=== PATIENT | male | born 1970 | race Two or more races ===

== ENCOUNTER 2019-03-01 17:01 | Inpatient (IN) | payer OTHER ==
[2019-03-01 17:40] VITALS: BMI 22.6
--- NOTE | 2019-03-01 19:43 | HP ---
CIWA Score Nausea/Vomitin-Mild Nausea/No Vomiting Muscle Tremors: 3 Anxiety: 2 Agitation: 2 Paroxysmal Sweats: 1-Minimal Palms Moist Orientation: 2-Disoriented Date<2 days Tacttile Disturbances: 1-Very Mild Itch/Numbness Auditory Disturbances: 1-Very Mild Visual Disturbances: 1-Very Mild Sensitivity Headache: 1-Very Mild CIWA-Ar Total Score: 15 - Admission Criteria OASAS Guidelines: Admission for Medically Managed Detox: Requires at least one of the followin. CIWA greater than 12 2. Seizures within the past 24 hours 3. Delirium tremens within the past 24 hours 4. Hallucinations within the past 24 hours 5. Acute intervention needed for co occurring medical disorder 6. Acute intervention needed for co occurring psychiatric disorder 7. Severe withdrawal that cannot be handled at a lower level of care (continued vomiting, continued diarrhea, abnormal vital signs) requiring intravenous medication and/or fluids 8. Admitting History and Physical - Admission Chief Complaint: Withdrawal symptoms History Source: Patient Limitations to Obtaining History: No Limitations - Past Surgical History Past Surgical History: Yes: None - Smoking History Smoking history: Current every day smoker Have you smoked in the past 12 months: Yes Aproximately how many cigarettes per day: 5 - Alcohol/Substance Use Hx Alcohol Use: Yes Number of Drinks Daily: 2 (2 pints ) Date of Last Use: 03/01/19 - Social History Usual Living Arrangement: Yes: Other (Homeless) Admission [facility] Chief Complaint: WITHDRAWAL SYMPTOMS Allergies/Adverse Reactions: Allergies Allergy/AdvReac Type Severity Reaction Status Date / Time No Known Allergies Allergy Verified 03/01/19 17:36 History of Present Illness: 48 Y.O. MAN WITH AN EXTENSIVE HISTORY OF ALCOHOL DEPENDENCE IS HERE SEEKING HIS FIRST ADMISSION TO DETOX. HE WAS AT [facility] OVERNIGHT FOR ALCOHOL INTOXICATION AND WAS BROUGHT TO [facility] BY OUR WATER SERVER FOR DETOX SERVICES. DOES NOT HAVE A SIGNIFICANT PERIOD OF SOBRIETY. Exam Limitations: No Limitations - Ebola screening Have you traveled outside of the country in the last 21 days: No (N) Have you had contact with anyone from an Ebola affected area: No Do you have a fever: No - Review of Systems Constitutional: Chills, Unintentional Wgt. Loss EENT: reports: Blurred Vision, Eye Pain, Tearing Respiratory: reports: Shortness of Breath Cardiac: reports: Palpitations GI: reports: Vomiting, Abdominal cramping : reports: No Symptoms Reported Musculoskeletal: reports: Back Pain, Neck Pain Integumentary: reports: No Symptoms Reported Neuro: reports: No Symptoms reported Endocrine: reports: No Symptoms Reported Hematology: reports: No Symptoms Reported Psychiatric: reports: Mood/Affect Appropiate Other Systems: Reviewed and Negative Patient History - Patient Medical History Hx Anemia: No Hx Asthma: No Hx Chronic Obstructive Pulmonary Disease (COPD): No Hx Cancer: No Hx Cardiac Disorders: No Hx Congestive Heart Failure: No Hx Hypertension: No Hx Hypercholesterolemia: No Hx Pacemaker: No HX Cerebrovascular Accident: No Hx Seizures: No Hx Dementia: No Hx Diabetes: Yes (Reports dx of prediabetes ) Hx Gastrointestinal Disorders: No Hx Liver Disease: No Hx Genitourinary Disorders: No Hx Sexually Transmitted Disorders: No Hx Renal Disease (ESRD): No Hx Thyroid Disease: No Hx Human Immunodeficiency Virus (HIV): No Hx Hepatitis C: No Hx Depression: No Hx Suicide Attempt: No Hx Bipolar Disorder: No Hx Schizophrenia: No - Patient Surgical History Past Surgical History: No - PPD History Results: H/O +ppd PPD to be Administered?: No - Reproductive History Patient is a Female of Child Bearing Age (11 -55 yrs old): No - Smoking Cessation Smoking history: Current every day smoker Have you smoked in the past 12 months: Yes Aproximately how many cigarettes per day: 5 Initiated information on smoking cessation: Yes 'Breaking Loose' booklet given: 03/01/19 - Substance & Tx. History Hx Alcohol Use: Yes Hx Substance Use: No Substance Use Type: Alcohol Hx Substance Use Treatment: No - Substances abused Alcohol Substance route: Oral Frequency: Daily Amount used: 1/2 GALLON VODKA Age of first use: 15 Date of last use: 03/01/19 Admission Physical Exam BHS - Vital Signs Vital Signs: Vital Signs - 24 hr 03/01/19 03/01/19 17:31 19:12 Temperature 98.1 F 98.1 F Pulse Rate 81 81 Respiratory 18 18 Rate Blood Pressure 149/99 149/99 - Physical General Appearance: Yes: Irritable, Sweating, Anxious HEENTM: Yes: Hearing grossly Normal, Normocephalic, Normal Voice Respiratory: Yes: Lungs Clear, Normal Breath Sounds, No Respiratory Distress, No Accessory Muscle Use Neck: Yes: No masses,lesions,Nodules Breast: Yes: Breast Exam Deferred Cardiology: Yes: Regular Rhythm, Regular Rate Abdominal: Yes: Normal Bowel Sounds, Non Tender, Flat Back: Yes: Within Normal Limits Extremities: Yes: Normal Capillary Refill Neurological: Yes: Alert, Normal Mood/Affect, Normal Response Integumentary: Yes: Normal Color, Dry, Warm Lymphatic: Yes: Within Normal Limits - Diagnostic (1) Alcohol dependence with intoxication, uncomplicated Current Visit: Yes Status: Chronic (2) Nicotine dependence Current Visit: Yes Status: Chronic (3) Prediabetes Current Visit: Yes Status: Chronic Cleared for Admission S - Detox or Rehab [facility] Level of Care: Medically Managed Detox Regimen/Protocol: Librium Claeared for Rehab Admission: No Breathalyzer - Breathalyzer Breathalyzer: 0.048 Urine Drug Screen - Test Device Lot number: [id number] Expiration date: 10/06/20 - Control Is test valid?: Yes - Results Drug screen NEGATIVE: No Urine drug screen results: MONICO-Cocaine, BZO-Benzodiazepines Inpatient Rehab Admission - Rehab Decision to Admit Inpatient rehab admission?: No
[2019-03-01] MEDS ORDERED: MAGNESIUM HYDROX 2400MG/30ML ORAL SUSPENSION 30 ML CUP PO PRN (20:24)
[2019-03-01] MEDS ORDERED: hydrOXYzine PAMOATE 25 MG CAPSULE (FP) PO PRN (20:24)
[2019-03-01] MEDS ORDERED: IBUPROFEN 400 MG TABLET (FP) PO PRN (20:24)
[2019-03-01] MEDS ORDERED: MENTHOL/PHENOL 1 EACH UD MM PRN (20:24)
[2019-03-01] MEDS ORDERED: ACETAMINOPHEN 325 MG TABLET (FP) PO PRN ×2 (20:24)
[2019-03-01] MEDS ORDERED: chlordiazePOXIDE HCL 25 MG CAPSULE PO ONE (20:24)
[2019-03-01] MEDS ORDERED: MAGNESIUM CITRATE 300 ML BOTTLE PO PRN (20:24)
[2019-03-01] MEDS ORDERED: chlordiazePOXIDE HCL 25 MG CAPSULE PO PRN (20:24)
[2019-03-01] MEDS ORDERED: BISMUTH SUBSALICYLATE 524 MG/30 ML UD PO PRN (20:24)
[2019-03-01] MEDS ORDERED: METHOCARBAMOL 500 MG TABLET PO PRN (20:24)
[2019-03-01] MEDS ORDERED: MAG HYDROX/AL HYDROX/SIMETH 30 ML UNIT-DOSE CUP PO PRN (20:24)
[2019-03-01] MEDS ORDERED: NICOTINE POLACRILEX 2 MG GUM BUC PRN (20:24)
[2019-03-02] MEDS: chlordiazePOXIDE HCL 25 MG CAPSULE PO SCH ×5 (00:10→22:36)
[2019-03-02] MEDS: THIAMINE HCL 100 MG TABLET (FP) PO SCH ×2 (00:10→22:36)
[2019-03-02] MEDS: NICOTINE 14 MG/24 HOURS TOPICAL PATCH TD SCH (10:42)
[2019-03-02] MEDS: PRENATAL VITAMINS W/ FOLIC ACID TABLET (FP) PO SCH (10:42)
[2019-03-02 11:02] LABS: ALBUMIN 3.1 g/dl (3.4-5.0); BILIRUBIN,TOTAL 0.4 mg/dL (0.2-1); BLOOD UREA NITROGEN 19.4 mg/dL (7-18); CALCIUM 8.7 mg/dL (8.5-10.1); CREATININE 1.3 mg/dL (0.55-1.3); POTASSIUM 4.7 mmol/L (3.5-5.1); TOT PROT 5.6 g/dl (6.4-8.2)
[2019-03-02 11:07] LABS: HEMATOCRIT 38.8 % (35.4-49); MCH 32.1 pg (25.7-33.7); MCHC 33.5 g/dl (32.0-35.9); MEAN CELL VOLUME 95.6 fl (80-96); MEAN PLT VOLUME 8.8 fl (7.5-11.1); PLATELET COUNT 149 K/MM3 (134-434); RBC 4.05 M/mm3 (4.00-5.60); RDW 15.9 % (11.9-15.9); WHITE BLOOD COUNT 5.1 K/mm3 (4.0-10.0)
--- NOTE | 2019-03-02 12:25 | PN ---
[facility] CIWA - CIWA Score Nausea/Vomitin-No Nausea/No Vomiting Muscle Tremors: 3 Anxiety: 3 Agitation: 3 Paroxysmal Sweats: 2 Orientation: 0-Oriented Tacttile Disturbances: 0-None Auditory Disturbances: 0-None Visual Disturbances: 0-None Headache: 0-None Present CIWA-Ar Total Score: 11 S Progress Note (SOAP) Subjective: sweats shakes body aches interrupted sleep Objective: 03/02/19 12:24 Vital Signs Temperature 97.5 F L 03/02/19 09:30 Pulse Rate 61 03/02/19 09:30 Respiratory Rate 18 03/02/19 09:30 Blood Pressure 152/100 03/02/19 09:30 O2 Sat by Pulse Oximetry (%) Laboratory Tests 03/02/19 03/02/19 07:50 07:50 WBC 5.1 RBC 4.05 Hgb 13.0 Hct 38.8 MCV 95.6 MCH 32.1 MCHC 33.5 RDW 15.9 Plt Count 149 MPV 8.8 Sodium 141 Potassium 4.7 Chloride 108 H Carbon Dioxide 30 Anion Gap 3 L BUN 19.4 H Creatinine 1.3 Est GFR (CKD-EPI)AfAm 75.84 Est GFR (CKD-EPI)NonAf 65.43 Random Glucose 95 Calcium 8.7 Total Bilirubin 0.4 AST 100 H ALT 134 H Alkaline Phosphatase 107 Total Protein 5.6 L Albumin 3.1 L elevated liver enzymes aaox3 ambulating no acute distress Assessment: 03/02/19 12:24 withdrawals Plan: continue detox increase fluids d/c tylenol repeat labs
[2019-03-02] MEDS: MELATONIN 5 MG TABLETS PO PRN (22:37)
--- NOTE | 2019-03-03 05:12 | EKG ---
Test Reason : Blood Pressure : / mmHG Vent. Rate : 066 BPM Atrial Rate : 066 BPM P-R Int : 168 ms QRS Dur : 092 ms QT Int : 382 ms P-R-T Axes : 000 001 087 degrees QTc Int : 400 ms NORMAL SINUS RHYTHM LATERAL INFARCT , AGE UNDETERMINED ABNORMAL ECG NO PREVIOUS ECGS AVAILABLE Confirmed by REY HIGHTOWER MD ([id number]) on 03/03/2019 5:12:31 AM Referred By: QUINCY Confirmed By:REY HIGHTOWER MD
[2019-03-03] MEDS: chlordiazePOXIDE HCL 25 MG CAPSULE PO SCH ×4 (06:07→22:39)
--- NOTE | 2019-03-03 09:37 | PN ---
S CIWA - CIWA Score Nausea/Vomitin-No Nausea/No Vomiting Muscle Tremors: 2 Anxiety: 2 Agitation: 2 Paroxysmal Sweats: 2 Orientation: 0-Oriented Tacttile Disturbances: 0-None Auditory Disturbances: 0-None Visual Disturbances: 0-None Headache: 0-None Present CIWA-Ar Total Score: 8 BHS Progress Note (SOAP) Subjective: dry skin sweats shakes interrupted sleep Objective: 03/03/19 09:36 Vital Signs Temperature 97.9 F 03/03/19 09:30 Pulse Rate 77 03/03/19 09:30 Respiratory Rate 18 03/03/19 09:30 Blood Pressure 127/93 03/03/19 09:30 O2 Sat by Pulse Oximetry (%) Laboratory Tests 03/02/19 03/02/19 03/02/19 07:50 07:50 07:50 WBC 5.1 RBC 4.05 Hgb 13.0 Hct 38.8 MCV 95.6 MCH 32.1 MCHC 33.5 RDW 15.9 Plt Count 149 MPV 8.8 Sodium 141 Potassium 4.7 Chloride 108 H Carbon Dioxide 30 Anion Gap 3 L BUN 19.4 H Creatinine 1.3 Est GFR (CKD-EPI)AfAm 75.84 Est GFR (CKD-EPI)NonAf 65.43 Random Glucose 95 Calcium 8.7 Total Bilirubin 0.4 AST 100 H ALT 134 H Alkaline Phosphatase 107 Total Protein 5.6 L Albumin 3.1 L RPR Titer Nonreactive repeat labs pending aaox3 ambulating no acute distress Assessment: 03/03/19 09:36 withdrawals sx Plan: continue detox increase fluids lac hyrin lotion ordered pending repeated labs
[2019-03-03] MEDS: AMMONIUM LACTATE 12% LOTION 225 GM BOTTLE TP SCH ×2 (10:30→22:40)
[2019-03-03] MEDS: PRENATAL VITAMINS W/ FOLIC ACID TABLET (FP) PO SCH (10:32)
[2019-03-03] MEDS: NICOTINE 14 MG/24 HOURS TOPICAL PATCH TD SCH (10:32)
[2019-03-03] MEDS: THIAMINE HCL 100 MG TABLET (FP) PO SCH (22:39)
[2019-03-04] MEDS ORDERED: chlordiazePOXIDE HCL 10 MG CAPSULE PO PRN
[2019-03-04] MEDS: chlordiazePOXIDE HCL 10 MG CAPSULE PO SCH ×4 (06:33→22:11)
[2019-03-04 10:35] LABS: ALBUMIN 2.9 g/dl (3.4-5.0); BILIRUBIN,TOTAL 0.2 mg/dL (0.2-1); BLOOD UREA NITROGEN 21.1 mg/dL (7-18); CALCIUM 8.5 mg/dL (8.5-10.1); CREATININE 1.3 mg/dL (0.55-1.3); POTASSIUM 3.6 mmol/L (3.5-5.1); TOT PROT 5.3 g/dl (6.4-8.2)
[2019-03-04] MEDS: AMMONIUM LACTATE 12% LOTION 225 GM BOTTLE TP SCH ×2 (10:43→22:12)
[2019-03-04] MEDS: NICOTINE 14 MG/24 HOURS TOPICAL PATCH TD SCH (10:43)
[2019-03-04] MEDS: PRENATAL VITAMINS W/ FOLIC ACID TABLET (FP) PO SCH (10:43)
--- NOTE | 2019-03-04 14:21 | PN ---
S CIWA - CIWA Score Nausea/Vomitin-No Nausea/No Vomiting Muscle Tremors: 2 Anxiety: 1-Mildly Anxious Agitation: 2 Paroxysmal Sweats: 1-Minimal Palms Moist Orientation: 0-Oriented Tacttile Disturbances: 0-None Auditory Disturbances: 0-None Visual Disturbances: 0-None Headache: 0-None Present CIWA-Ar Total Score: 6 BHS Progress Note (SOAP) Subjective: sweats shakes irritable Objective: 03/04/19 14:19 Vital Signs Temperature 98.2 F 03/04/19 14:04 Pulse Rate 85 03/04/19 14:04 Respiratory Rate 18 03/04/19 14:04 Blood Pressure 139/79 03/04/19 14:04 O2 Sat by Pulse Oximetry (%) aaox3 ambulating no acute distress Assessment: 03/04/19 14:20 withdrawals Plan: continue detox
[2019-03-04] MEDS: THIAMINE HCL 100 MG TABLET (FP) PO SCH (22:11)
[2019-03-05] MEDS: chlordiazePOXIDE HCL 10 MG CAPSULE PO SCH ×2 (06:54→17:55)
[2019-03-05] MEDS: PRENATAL VITAMINS W/ FOLIC ACID TABLET (FP) PO SCH (10:19)
[2019-03-05] MEDS: AMMONIUM LACTATE 12% LOTION 225 GM BOTTLE TP SCH ×2 (10:19→23:12)
[2019-03-05] MEDS: NICOTINE 14 MG/24 HOURS TOPICAL PATCH TD SCH (10:19)
[2019-03-05] MEDS: METHYL SALICYLATE/MENTHOL OINT 30 GM TUBE TP SCH ×2 (13:51→23:11)
--- NOTE | 2019-03-05 17:55 | PN ---
[facility] CIWA - CIWA Score Nausea/Vomitin-No Nausea/No Vomiting Muscle Tremors: None Anxiety: 3 Agitation: 2 Paroxysmal Sweats: No Perspiration Orientation: 0-Oriented Tacttile Disturbances: 0-None Auditory Disturbances: 0-None Visual Disturbances: 0-None Headache: 0-None Present CIWA-Ar Total Score: 5 S Progress Note (SOAP) Subjective: Body Aches. Objective: PATIENT A & O X 3, OBSERVED AMBULATING ON DETOX UNIT UNASSISTED. IN NO ACUTE DISTRESS. 03/05/19 17:51 Vital Signs Temperature 97.0 F L 03/05/19 13:36 Pulse Rate 81 03/05/19 13:36 Respiratory Rate 18 03/05/19 13:36 Blood Pressure 121/78 03/05/19 13:36 O2 Sat by Pulse Oximetry (%) Laboratory Tests 03/02/19 03/02/19 03/02/19 07:50 07:50 07:50 WBC 5.1 RBC 4.05 Hgb 13.0 Hct 38.8 MCV 95.6 MCH 32.1 MCHC 33.5 RDW 15.9 Plt Count 149 MPV 8.8 Sodium 141 Potassium 4.7 Chloride 108 H Carbon Dioxide 30 Anion Gap 3 L BUN 19.4 H Creatinine 1.3 Est GFR (CKD-EPI)AfAm 75.84 Est GFR (CKD-EPI)NonAf 65.43 Random Glucose 95 Calcium 8.7 Total Bilirubin 0.4 AST 100 H ALT 134 H Alkaline Phosphatase 107 Total Protein 5.6 L Albumin 3.1 L RPR Titer Nonreactive 03/04/19 08:00 WBC RBC Hgb Hct MCV MCH MCHC RDW Plt Count MPV Sodium 141 Potassium 3.6 Chloride 109 H Carbon Dioxide 24 Anion Gap 7 L BUN 21.1 H Creatinine 1.3 Est GFR (CKD-EPI)AfAm 75.84 Est GFR (CKD-EPI)NonAf 65.43 Random Glucose 134 H Calcium 8.5 Total Bilirubin 0.2 AST 41 H ALT 85 H Alkaline Phosphatase 109 Total Protein 5.3 L Albumin 2.9 L RPR Titer LABS NOTED. Assessment: 03/05/19 17:51 WITHDRAWAL SYMPTOMS. ELEVATED AST LEVEL. ELEVATED ALT LEVEL. AZOTEMIA. 03/05/19 17:52 Plan: CONTINUE DETOX. INCREASE DAILY ORAL WATER INTAKE. TOPICAL [facility] FOR LOWER BACK ACHE. PATIENT SCHEDULED FOR D/C FROM DETOX UNIT TOMORROW.
[2019-03-05] MEDS: THIAMINE HCL 100 MG TABLET (FP) PO SCH (22:05)
[2019-03-05] MEDS: MELATONIN 5 MG TABLETS PO PRN (22:06)
[2019-03-06] MEDS ORDERED: chlordiazePOXIDE HCL 10 MG CAPSULE PO ONE (05:00)
[2019-03-06 09:36] VITALS: BP 139/90; PULSE 83; TEMP 98.2
[2019-03-06] MEDS: NICOTINE 14 MG/24 HOURS TOPICAL PATCH TD SCH (10:33)
[2019-03-06] MEDS: METHYL SALICYLATE/MENTHOL OINT 30 GM TUBE TP SCH (10:33)
[2019-03-06] MEDS: AMMONIUM LACTATE 12% LOTION 225 GM BOTTLE TP SCH (10:33)
--- NOTE | 2019-03-06 14:10 | DS ---
[facility] Detox Discharge Summary Admission Date: 03/01/19 Discharge Date: 03/06/19 - History Present History: Alcohol Dependence Additional Comments: Patient completed detox successfully and accepted admission to [facility] inpatient rehab. Patient discharged safely in stable condition. Pertinent Past History: Alcohol dependence Nicotine dependence Prediabetes History of positive PPD - Physical Exam Results Vital Signs: Vital Signs Temperature 98.2 F 03/06/19 09:35 Pulse Rate 83 03/06/19 09:35 Respiratory Rate 16 03/06/19 09:35 Blood Pressure 139/90 03/06/19 09:35 O2 Sat by Pulse Oximetry (%) Elevated b/p 139/90: denies htn, could be r/t withdrawal; monitor b/p, clonidine prn Pertinent Admission Physical Exam Findings: Withdrawal sxs Laboratory Tests 03/02/19 03/02/19 03/02/19 07:50 07:50 07:50 WBC 5.1 RBC 4.05 Hgb 13.0 Hct 38.8 MCV 95.6 MCH 32.1 MCHC 33.5 RDW 15.9 Plt Count 149 MPV 8.8 Sodium 141 Potassium 4.7 Chloride 108 H Carbon Dioxide 30 Anion Gap 3 L BUN 19.4 H Creatinine 1.3 Est GFR (CKD-EPI)AfAm 75.84 Est GFR (CKD-EPI)NonAf 65.43 Random Glucose 95 Calcium 8.7 Total Bilirubin 0.4 AST 100 H ALT 134 H Alkaline Phosphatase 107 Total Protein 5.6 L Albumin 3.1 L RPR Titer Nonreactive 03/04/19 08:00 WBC RBC Hgb Hct MCV MCH MCHC RDW Plt Count MPV Sodium 141 Potassium 3.6 Chloride 109 H Carbon Dioxide 24 Anion Gap 7 L BUN 21.1 H Creatinine 1.3 Est GFR (CKD-EPI)AfAm 75.84 Est GFR (CKD-EPI)NonAf 65.43 Random Glucose 134 H Calcium 8.5 Total Bilirubin 0.2 AST 41 H ALT 85 H Alkaline Phosphatase 109 Total Protein 5.3 L Albumin 2.9 L RPR Titer Labs reviewed: prerenal azotemia noted: encouraged PO water intake, monitor bmp intermittently - Treatment Hospital Course: Detox Protocol Followed, Detoxed Safely, Responded well, Discharged Condition Good, Rehab Referral Accepted - Medication Discharge Medications: Ambulatory Orders NK [No Known Home Medication] 03/01/19 - Diagnosis (1) History of positive PPD Status: Chronic (2) Acute prerenal azotemia Status: Acute (3) Alcohol dependence with intoxication, uncomplicated Status: Acute (4) Nicotine dependence Status: Chronic (5) Prediabetes Status: Chronic (6) Elevated BP without diagnosis of hypertension Status: Acute - AMA Did Patient Leave Against Medical Advice: No (Accepted admission to [facility] rehab)
== END 2019-03-06 11:09 | disposition other institution (70) | DRG 775 ==
LOC: YASAS 17:01 → Y6N 19:58
PROVIDERS: ADMIT Allergy & Immunology; ATTEND Allergy & Immunology
PROC: HZ2ZZZZ Detoxification Services for Substance Abuse Treatment (ICD-10-PCS; principal; 2019-03-01)
DX: F10.230 Alcohol dependence with withdrawal, uncomplicated (principal); F17.210 Nicotine dependence, cigarettes, uncomplicated; R73.03 Prediabetes; R79.89 Other specified abnormal findings of blood chemistry; R76.11 Nonspecific reaction to tuberculin skin test without active tuberculosis; R03.0 Elevated blood-pressure reading, without diagnosis of hypertension; R74.0 Nonspecific elevation of levels of transaminase and lactic acid dehydrogenase [LDH]; R94.5 Abnormal results of liver function studies
CPT/HCPCS: 36415; 71046-TC-FY; 80053; 85027; 86593; 93005; 93010

== ENCOUNTER 2019-03-06 11:32 | Inpatient (IN) | payer OTHER ==
[2019-03-06] MEDS ORDERED: FLU VACCINE QUAD 60 MCG/0.5 ML (MDV 19-20) IM ONE (14:00)
[2019-03-06] MEDS ORDERED: guaiFENesin 200 MG/10 ML 10 ML UNIT-DOSE CUPS PO PRN (14:15)
[2019-03-06] MEDS ORDERED: MENTHOL/PHENOL 1 EACH UD MM PRN (14:15)
[2019-03-06] MEDS ORDERED: P-EPHED 60MG/TRIPROLIDI 2.5MG TABLET PO PRN (14:15)
[2019-03-06] MEDS ORDERED: hydrOXYzine PAMOATE 25 MG CAPSULE (FP) PO PRN (14:15)
[2019-03-06] MEDS ORDERED: MAGNESIUM CITRATE 300 ML BOTTLE PO PRN (14:15)
[2019-03-06] MEDS ORDERED: NICOTINE POLACRILEX 2 MG GUM BUC PRN (14:15)
[2019-03-06] MEDS ORDERED: MAG HYDROX/AL HYDROX/SIMETH 30 ML UNIT-DOSE CUP PO PRN (14:15)
[2019-03-06] MEDS ORDERED: LOPERAMIDE HCL 2 MG CAPSULE PO PRN (14:15)
[2019-03-06] MEDS ORDERED: IBUPROFEN 400 MG TABLET (FP) PO PRN (14:15)
[2019-03-06] MEDS ORDERED: MAGNESIUM HYDROX 2400MG/30ML ORAL SUSPENSION 30 ML CUP PO PRN (14:15)
[2019-03-06] MEDS ORDERED: ACETAMINOPHEN 325 MG TABLET (FP) PO PRN (14:15)
--- NOTE | 2019-03-06 14:15 | HP ---
[facility] Rehab Assess/Revision - Admission History Admitted to Rehab from: [facility] Date of Admission to Rehab: 03/06/2019 - Vital signs Vital Signs: Vital Signs Period Temp Pulse Resp BP Sys/Hodge Pulse Ox Last 24 Hr 98 F 86 18 115/74 - Findings Detox History & Physical reviewed: Yes Concur with findings: Yes Inpatient Rehab Admission - Rehab Decision to Admit Inpatient rehab admission?: Yes - Initial Determination Are CD services needed?: No Free of communicable disease: Yes Not in need of hospitalization: No - Rehab Admission Criteria Previous failed treatment: Yes Poor recovery environment: Yes Comorbidities: No Lacks judgement: Yes Patient is meeting Inpatient Rehab admission criteria:: Yes
[2019-03-06] MEDS: AMMONIUM LACTATE 12% LOTION 225 GM BOTTLE TP SCH (21:07)
[2019-03-06] MEDS ORDERED: MELATONIN 5 MG TABLETS PO PRN (22:00)
[2019-03-06] MEDS ORDERED: THIAMINE HCL 100 MG TABLET (FP) PO SCH (22:00)
[2019-03-07 07:32] VITALS: BP 128/81; PULSE 75; TEMP 97.6
[2019-03-07] MEDS ORDERED: PRENATAL VITAMINS W/ FOLIC ACID TABLET (FP) PO SCH (10:00)
[2019-03-07] MEDS ORDERED: METHYL SALICYLATE/MENTHOL OINT 30 GM TUBE TP SCH (10:00)
[2019-03-07] MEDS: AMMONIUM LACTATE 12% LOTION 225 GM BOTTLE TP SCH (10:11)
--- NOTE | 2019-03-07 11:04 | DS ---
[facility] Rehab Discharge Summary - [facility] Rehab Discharge Summary Admission Date: 03/06/19 Discharge Date: 03/07/19 - History Present History: Alcohol dependence Pertinent Past History: 48 Y.O. MAN WITH AN EXTENSIVE HISTORY OF ALCOHOL DEPENDENCE IS HERE SEEKING HIS FIRST ADMISSION. HE WAS AT [facility] OVERNIGHT FOR ALCOHOL INTOXICATION AND WAS BROUGHT TO [facility] BY OUR CUST[employer] REPRESENTATIVE FOR DETOX SERVICES. DOES NOT HAVE A SIGNIFICANT PERIOD OF SOBRIETY. - Discharge Physical Exam Vital Signs: Vital Signs Temperature 97.6 F 03/07/19 06:30 Pulse Rate 75 03/07/19 06:30 Respiratory Rate 18 03/07/19 06:30 Blood Pressure 128/81 03/07/19 06:30 O2 Sat by Pulse Oximetry (%) Pertinent Admission Physical Exam Findings: General Appearance: No apparent distress HEENTM: Normocephalic, Respiratory: Lungs Clear, Neck: supple, Nodules Cardiology: s1 s2 Abdominal: +Bowel Sounds, Non Tender, Flat MSK: Full ROM, steady gait Neurological: CN2-12 intact - Treatment Discharge Condition: Discharge condition good (Medically stable for discharge.) Hospital Course: Early discharge for patient after completing detox. - Medication Discharge Medications: Ambulatory Orders NK [No Known Home Medication] 03/01/19 - Medication-Assisted Treatment (MAT) Medication-Assisted Treatment (MAT): No - Discharge Instructions Diet, activity, other medical instructions: Diet: as tolerated Activity: as tolerated Other medical instructions: Please attend AA meetings and follow up with PCP. - Diagnosis (1) Alcohol dependence with intoxication, uncomplicated Current Visit: No Status: Acute - Follow-up Referral Minutes to complete discharge: 15 - AMA Did Patient Leave Against Medical Advice: No Additional Comments: Patient does not have any home medications. He refused an aftercare referral.
== END 2019-03-07 11:15 | disposition home or self-care (01) | DRG 772 ==
LOC: YASAS 11:32 → Y3W 11:33
PROVIDERS: ADMIT Neuromusculoskeletal Medicine & OMM; ATTEND Neuromusculoskeletal Medicine & OMM
PROC: HZ42ZZZ Group Counseling for Substance Abuse Treatment, Cognitive-Behavioral (ICD-10-PCS; principal; 2019-03-06)
DX: F10.20 Alcohol dependence, uncomplicated (principal); F17.210 Nicotine dependence, cigarettes, uncomplicated; R73.03 Prediabetes
CPT/HCPCS: 36415; 87389; G0008; Q2036

== ENCOUNTER 2022-07-18 10:53 | Inpatient (IN) | payer OTHER ==
[2022-07-18 11:29] VITALS: BMI 22.8
[2022-07-18] MEDS ORDERED: IBUPROFEN 400 MG TABLET (FP) PO PRN (14:50)
[2022-07-18] MEDS ORDERED: NICOTINE 10 MG CARTRIDGE (INHALER) IH PRN (14:50)
[2022-07-18] MEDS ORDERED: BENZOCAINE/MENTHOL (CHLORASEPTIC ) LOZENGE MM PRN (14:50)
[2022-07-18] MEDS ORDERED: NICOTINE POLACRILEX 2 MG GUM BUC PRN (14:50)
[2022-07-18] MEDS ORDERED: DICYCLOMINE HCL 10 MG CAPSULE PO PRN (14:50)
[2022-07-18] MEDS ORDERED: POLYETHYLENE GLYCOL (HEALTHYLAX) 3350 17 GM PACKET PO PRN (14:50)
[2022-07-18] MEDS ORDERED: IBUPROFEN 600 MG TABLET (FP) PO PRN (14:50)
[2022-07-18] MEDS ORDERED: NALOXONE HCL (KLOXXADO) 8 MG SPRAY NS PRN (14:50)
[2022-07-18] MEDS ORDERED: ACETAMINOPHEN 325 MG TABLET (FP) PO PRN (14:50)
[2022-07-18] MEDS ORDERED: COLLOIDAL OATMEAL 1 BAR EACH TP PRN (14:50)
[2022-07-18] MEDS ORDERED: MAGNESIUM HYDROX 2400MG/30ML ORAL SUSPENSION 30 ML CUP PO PRN (14:50)
[2022-07-18] MEDS ORDERED: MAG HYDROX/AL HYDROX/SIMETH 30 ML UNIT-DOSE CUP PO PRN (14:50)
[2022-07-18] MEDS ORDERED: LOPERAMIDE HCL 2 MG CAPSULE PO PRN (14:50)
[2022-07-18] MEDS ORDERED: guaiFENesin 600 MG TABLET.ER (FP) PO PRN (14:50)
[2022-07-18] MEDS ORDERED: BENZONATATE 200 MG CAPSULE PO PRN (14:50)
[2022-07-18] MEDS ORDERED: BISMUTH SUBSALICYLATE 262 MG/15 ML BTL PO PRN (14:50)
[2022-07-18] MEDS ORDERED: NALOXONE HCL 0.4 MG/ML VIAL IM PRN (14:50)
[2022-07-18] MEDS ORDERED: ONDANSETRON *ODT* 4 MG TABLET SL PRN (14:50)
[2022-07-18] MEDS ORDERED: AMMONIUM LACTATE 12% LOTION 225 GM BOTTLE TP PRN (14:50)
[2022-07-18] MEDS: levETIRAcetam 500 MG TABLET (FP) PO SCH (15:31)
[2022-07-18] MEDS: hydrOXYzine PAMOATE 25 MG CAPSULE (FP) PO PRN (21:54)
[2022-07-18] MEDS: METHOCARBAMOL 500 MG TABLET PO PRN (21:54)
[2022-07-18] MEDS: THIAMINE HCL 100 MG TABLET (FP) PO SCH (21:54)
[2022-07-18] MEDS: MELATONIN 5 MG TABLETS PO SCH (21:54)
[2022-07-19 09:31] LABS: HEMATOCRIT 35.8 % (35.4-49); HEMOGLOBIN 12.1 GM/dL (11.7-16.9); MCH 31.5 pg (25.7-33.7); MCHC 33.9 g/dl (32.0-35.9); MEAN CELL VOLUME 92.9 fl (80-96); MEAN PLT VOLUME 8.1 fl (7.5-11.1); PLATELET COUNT 165 10^3/uL (134-434); RBC 3.86 M/mm3 (4.00-5.60); RDW 15.5 % (11.9-15.9); WHITE BLOOD COUNT 6.8 K/mm3 (4.0-10.0)
[2022-07-19 09:35] LABS: POTASSIUM 4.4 mmol/L (3.5-5.1)
[2022-07-19 09:38] LABS: CALCIUM 8.6 mg/dL (8.5-10.1)
[2022-07-19 09:39] LABS: ALBUMIN 3.1 g/dl (3.4-5.0); BLOOD UREA NITROGEN 19.6 mg/dL (7-18)
[2022-07-19 09:40] LABS: CREATININE 1.3 mg/dL (0.55-1.3)
[2022-07-19 09:42] LABS: BILIRUBIN,TOTAL 0.9 mg/dL (0.2-1); TOT PROT 5.5 g/dl (6.4-8.2)
[2022-07-19] MEDS: PRENATAL VITAMINS W/ FOLIC ACID TABLET (FP) PO SCH (10:30)
[2022-07-19] MEDS: levETIRAcetam 500 MG TABLET (FP) PO SCH (10:30)
[2022-07-19] MEDS ORDERED: chlordiazePOXIDE HCL 10 MG CAPSULE PO PRN (11:00)
[2022-07-19] MEDS: chlordiazePOXIDE HCL 25 MG CAPSULE PO SCH ×3 (11:41→22:27)
[2022-07-19] MEDS: THIAMINE HCL 100 MG TABLET (FP) PO SCH (22:27)
[2022-07-19] MEDS: MELATONIN 5 MG TABLETS PO SCH (22:27)
[2022-07-20] MEDS: chlordiazePOXIDE HCL 10 MG CAPSULE PO SCH ×4 (05:32→22:37)
[2022-07-20] MEDS: levETIRAcetam 500 MG TABLET (FP) PO SCH (10:32)
[2022-07-20] MEDS: PRENATAL VITAMINS W/ FOLIC ACID TABLET (FP) PO SCH (10:32)
[2022-07-20] MEDS ORDERED: cloNIDine HCL 0.1 MG TABLET PO ONE (18:21)
[2022-07-20] MEDS: THIAMINE HCL 100 MG TABLET (FP) PO SCH (22:34)
[2022-07-20] MEDS: MELATONIN 5 MG TABLETS PO SCH (22:34)
[2022-07-20] MEDS: hydrOXYzine PAMOATE 25 MG CAPSULE (FP) PO PRN (22:37)
[2022-07-20] MEDS: METHOCARBAMOL 500 MG TABLET PO PRN (22:37)
[2022-07-21] MEDS: chlordiazePOXIDE HCL 10 MG CAPSULE PO SCH ×2 (05:55→16:44)
[2022-07-21] MEDS: PRENATAL VITAMINS W/ FOLIC ACID TABLET (FP) PO SCH (09:38)
[2022-07-21] MEDS: levETIRAcetam 500 MG TABLET (FP) PO SCH (09:38)
[2022-07-21] MEDS: THIAMINE HCL 100 MG TABLET (FP) PO SCH (22:00)
[2022-07-21] MEDS: MELATONIN 5 MG TABLETS PO SCH (22:00)
[2022-07-21] MEDS: METHOCARBAMOL 500 MG TABLET PO PRN (22:01)
[2022-07-21] MEDS ORDERED: LISINOPRIL 5 MG TABLET PO ONE (22:01)
[2022-07-21] MEDS: hydrOXYzine PAMOATE 25 MG CAPSULE (FP) PO PRN (22:01)
[2022-07-22] MEDS ORDERED: chlordiazePOXIDE HCL 10 MG CAPSULE PO ONE (05:00)
[2022-07-22 08:41] VITALS: BP 110/70; PULSE 62; RESP 16; TEMP 97.3
[2022-07-22] MEDS: PRENATAL VITAMINS W/ FOLIC ACID TABLET (FP) PO SCH (09:06)
[2022-07-22] MEDS: levETIRAcetam 500 MG TABLET (FP) PO SCH (09:07)
== END 2022-07-22 09:31 | disposition home or self-care (01) | DRG 775 ==
LOC: YASAS 10:53 → Y3N 14:49 → UNDOADMIN 14:49 → Y3N 07-19 18:23
PROVIDERS: ADMIT Allergy & Immunology; ATTEND Surgery
PROC: HZ2ZZZZ Detoxification Services for Substance Abuse Treatment (ICD-10-PCS; principal; 2022-07-18)
DX: F10.230 Alcohol dependence with withdrawal, uncomplicated (principal); F17.210 Nicotine dependence, cigarettes, uncomplicated; I12.9 Hypertensive chronic kidney disease with stage 1 through stage 4 chronic kidney disease, or unspecified chronic kidney disease; N18.9 Chronic kidney disease, unspecified; Z87.19 Personal history of other diseases of the digestive system; Z86.11 Personal history of tuberculosis; Z59.00 Homelessness unspecified
CPT/HCPCS: 36415; 80053; 85027; 86780; 87811; C9803-CS; U0003; U0005

== ENCOUNTER 2022-08-28 11:03 | Inpatient (IN) | payer OTHER ==
[2022-08-28 11:45] VITALS: BMI 21.9
[2022-08-28] MEDS ORDERED: ONDANSETRON *ODT* 4 MG TABLET SL PRN (12:33)
[2022-08-28] MEDS ORDERED: NALOXONE HCL (KLOXXADO) 8 MG SPRAY NS PRN (12:33)
[2022-08-28] MEDS ORDERED: BENZONATATE 200 MG CAPSULE PO PRN (12:33)
[2022-08-28] MEDS ORDERED: hydrOXYzine PAMOATE 25 MG CAPSULE (FP) PO PRN (12:33)
[2022-08-28] MEDS ORDERED: LORazepam 2 MG TABLET PO ONE (12:33)
[2022-08-28] MEDS ORDERED: guaiFENesin 600 MG TABLET.ER (FP) PO PRN (12:33)
[2022-08-28] MEDS ORDERED: LOPERAMIDE HCL 2 MG CAPSULE PO PRN (12:33)
[2022-08-28] MEDS ORDERED: IBUPROFEN 400 MG TABLET (FP) PO PRN (12:33)
[2022-08-28] MEDS ORDERED: POLYETHYLENE GLYCOL (HEALTHYLAX) 3350 17 GM PACKET PO PRN (12:33)
[2022-08-28] MEDS ORDERED: BENZOCAINE/MENTHOL (CHLORASEPTIC ) LOZENGE MM PRN (12:33)
[2022-08-28] MEDS ORDERED: NALOXONE HCL 0.4 MG/ML VIAL IM PRN (12:33)
[2022-08-28] MEDS ORDERED: MAG HYDROX/AL HYDROX/SIMETH 30 ML UNIT-DOSE CUP PO PRN (12:33)
[2022-08-28] MEDS ORDERED: BISMUTH SUBSALICYLATE 262 MG/15 ML BTL PO PRN (12:33)
[2022-08-28] MEDS ORDERED: IBUPROFEN 600 MG TABLET (FP) PO PRN (12:33)
[2022-08-28] MEDS ORDERED: DICYCLOMINE HCL 10 MG CAPSULE PO PRN (12:33)
[2022-08-28] MEDS ORDERED: ACETAMINOPHEN 325 MG TABLET (FP) PO PRN (12:33)
[2022-08-28] MEDS ORDERED: LORazepam 1 MG TABLET PO PRN (12:33)
[2022-08-28] MEDS ORDERED: MAGNESIUM HYDROX 2400MG/30ML ORAL SUSPENSION 30 ML CUP PO PRN (12:33)
[2022-08-28] MEDS ORDERED: METHOCARBAMOL 500 MG TABLET PO PRN (12:33)
[2022-08-28] MEDS ORDERED: NICOTINE 10 MG CARTRIDGE (INHALER) IH PRN (12:33)
[2022-08-28] MEDS ORDERED: LORazepam 2 MG TABLET ONE (13:19)
[2022-08-28] MEDS ORDERED: levETIRAcetam 500 MG TABLET (FP) PO ONE (13:20)
[2022-08-28] MEDS ORDERED: PRENATAL VITAMINS W/ FOLIC ACID TABLET (FP) PO ONE (13:20)
[2022-08-28] MEDS ORDERED: NICOTINE 14 MG/24 HOURS TOPICAL PATCH TD ONE (13:21)
[2022-08-28] MEDS: PRENATAL VITAMINS W/ FOLIC ACID TABLET (FP) PO SCH (13:22)
[2022-08-28] MEDS: levETIRAcetam 500 MG TABLET (FP) PO SCH (13:22)
[2022-08-28] MEDS: NICOTINE 14 MG/24 HOURS TOPICAL PATCH TD SCH (13:22)
[2022-08-28] MEDS: LORazepam 2 MG TABLET PO SCH ×2 (17:19→22:40)
[2022-08-28] MEDS: MELATONIN 5 MG TABLETS PO SCH (22:40)
[2022-08-28] MEDS: THIAMINE HCL 100 MG TABLET (FP) PO SCH (22:40)
[2022-08-29] MEDS: LORazepam 2 MG TABLET PO SCH ×4 (06:00→23:18)
[2022-08-29] MEDS: PRENATAL VITAMINS W/ FOLIC ACID TABLET (FP) PO SCH (10:45)
[2022-08-29] MEDS: levETIRAcetam 500 MG TABLET (FP) PO SCH (10:45)
[2022-08-29] MEDS: NICOTINE 14 MG/24 HOURS TOPICAL PATCH TD SCH (10:46)
[2022-08-29 10:56] LABS: POTASSIUM 3.6 mmol/L (3.5-5.1)
[2022-08-29 10:58] LABS: BLOOD UREA NITROGEN 16.7 mg/dL (7-18); CALCIUM 8.5 mg/dL (8.5-10.1)
[2022-08-29 10:59] LABS: ALBUMIN 3.2 g/dl (3.4-5.0)
[2022-08-29 11:00] LABS: HEMATOCRIT 38.5 % (35.4-49); HEMOGLOBIN 12.6 GM/dL (11.7-16.9); MCHC 32.6 g/dl (32.0-35.9); MEAN CELL VOLUME 94.9 fl (80-96); MEAN PLT VOLUME 9.4 fl (7.5-11.1); PLATELET COUNT 96 10^3/uL (134-434); RBC 4.05 M/mm3 (4.00-5.60); RDW 16.2 % (11.9-15.9); WHITE BLOOD COUNT 4.8 K/mm3 (4.0-10.0)
[2022-08-29 11:02] LABS: CREATININE 1.3 mg/dL (0.55-1.3)
[2022-08-29 11:03] LABS: TOT PROT 5.7 g/dl (6.4-8.2)
[2022-08-29] MEDS: THIAMINE HCL 100 MG TABLET (FP) PO SCH (22:17)
[2022-08-29] MEDS: MELATONIN 5 MG TABLETS PO SCH (22:18)
[2022-08-30] MEDS: LORazepam 1 MG TABLET PO SCH ×4 (05:18→22:19)
[2022-08-30] MEDS: PRENATAL VITAMINS W/ FOLIC ACID TABLET (FP) PO SCH (10:49)
[2022-08-30] MEDS: levETIRAcetam 500 MG TABLET (FP) PO SCH (10:49)
[2022-08-30] MEDS: NICOTINE 14 MG/24 HOURS TOPICAL PATCH TD SCH (10:49)
[2022-08-30 10:51] LABS: POTASSIUM 3.6 mmol/L (3.5-5.1)
[2022-08-30 11:02] LABS: ALBUMIN 3.2 g/dl (3.4-5.0); BLOOD UREA NITROGEN 19.6 mg/dL (7-18); CALCIUM 8.7 mg/dL (8.5-10.1)
[2022-08-30 11:04] LABS: CREATININE 1.5 mg/dL (0.55-1.3)
[2022-08-30 11:05] LABS: BILIRUBIN,TOTAL 0.6 mg/dL (0.2-1); TOT PROT 5.6 g/dl (6.4-8.2)
[2022-08-30] MEDS: LACTULOSE 20 GM/30 ML UDC (FOR ORAL USE ONLY) PO SCH ×2 (17:49→22:20)
[2022-08-30] MEDS: MELATONIN 5 MG TABLETS PO SCH (22:20)
[2022-08-30] MEDS: THIAMINE HCL 100 MG TABLET (FP) PO SCH (22:20)
[2022-08-31] MEDS ORDERED: LORazepam 0.5 MG TABLET PO PRN
[2022-08-31] MEDS: LORazepam 0.5 MG TABLET PO SCH ×4 (05:49→22:54)
[2022-08-31 09:31] LABS: ALBUMIN 3.7 g/dl (3.4-5.0)
[2022-08-31 09:33] LABS: BILIRUBIN,DIRECT 0.1 mg/dL (0.0-0.2)
[2022-08-31 09:35] LABS: BILIRUBIN,TOTAL 0.5 mg/dL (0.2-1)
[2022-08-31] MEDS: LACTULOSE 20 GM/30 ML UDC (FOR ORAL USE ONLY) PO SCH ×4 (10:55→22:54)
[2022-08-31] MEDS: levETIRAcetam 500 MG TABLET (FP) PO SCH (11:00)
[2022-08-31] MEDS: NICOTINE 14 MG/24 HOURS TOPICAL PATCH TD SCH (11:00)
[2022-08-31] MEDS: PRENATAL VITAMINS W/ FOLIC ACID TABLET (FP) PO SCH (11:00)
[2022-08-31] MEDS: THIAMINE HCL 100 MG TABLET (FP) PO SCH (22:54)
[2022-08-31] MEDS: MELATONIN 5 MG TABLETS PO SCH (22:55)
[2022-09-01] MEDS ORDERED: LORazepam 0.5 MG TABLET PO ONE (05:00)
[2022-09-01] MEDS: PRENATAL VITAMINS W/ FOLIC ACID TABLET (FP) PO SCH (10:39)
[2022-09-01] MEDS: levETIRAcetam 500 MG TABLET (FP) PO SCH (10:39)
[2022-09-01] MEDS: NICOTINE 14 MG/24 HOURS TOPICAL PATCH TD SCH (10:40)
[2022-09-01] MEDS: LACTULOSE 20 GM/30 ML UDC (FOR ORAL USE ONLY) PO SCH ×2 (10:40→15:08)
[2022-09-01 13:33] VITALS: BP 106/80; PULSE 91; RESP 18; TEMP 98
== END 2022-09-01 15:09 | disposition other institution (70) | DRG 774 ==
LOC: YASAS 11:03 → Y6N 13:45
PROVIDERS: ADMIT Allergy & Immunology; ATTEND Psychiatry & Neurology Pain Medicine
PROC: HZ2ZZZZ Detoxification Services for Substance Abuse Treatment (ICD-10-PCS; principal; 2022-08-28)
DX: F10.230 Alcohol dependence with withdrawal, uncomplicated (principal); F14.10 Cocaine abuse, uncomplicated; F17.210 Nicotine dependence, cigarettes, uncomplicated; F19.282 Other psychoactive substance dependence with psychoactive substance-induced sleep disorder; E72.20 Disorder of urea cycle metabolism, unspecified; G40.909 Epilepsy, unspecified, not intractable, without status epilepticus; R74.01 Elevation of levels of liver transaminase levels; R73.03 Prediabetes
CPT/HCPCS: 36415; 71046-TC-FY; 80053; 80076; 82140; 85027; 86780; 87635; 87811; Q0162

== ENCOUNTER 2022-09-01 14:41 | Inpatient (IN) | payer OTHER ==
[~2022-09-01 14:41] MED LIST: AMMONIUM LACTATE 12% LOTION 225 GM BOTTLE TP PRN; BENZOCAINE/MENTHOL (CHLORASEPTIC ) LOZENGE MM PRN; BENZONATATE 200 MG CAPSULE PO PRN; COLLOIDAL OATMEAL 1 BAR EACH TP PRN; LOPERAMIDE HCL 2 MG CAPSULE PO PRN; MAG HYDROX/AL HYDROX/SIMETH 30 ML UNIT-DOSE CUP PO PRN; MAGNESIUM HYDROX 2400MG/30ML ORAL SUSPENSION 30 ML CUP PO PRN; NICOTINE 10 MG CARTRIDGE (INHALER) IH PRN; NICOTINE POLACRILEX 2 MG GUM BUC PRN; POLYETHYLENE GLYCOL (HEALTHYLAX) 3350 17 GM PACKET PO PRN; guaiFENesin 600 MG TABLET.ER (FP) PO PRN; hydrOXYzine PAMOATE 25 MG CAPSULE (FP) PO PRN
[2022-09-01] MEDS: LACTULOSE 20 GM/30 ML UDC (FOR ORAL USE ONLY) PO SCH ×3 (15:15→21:47)
[2022-09-01] MEDS: MELATONIN 5 MG TABLETS PO SCH (21:13)
[2022-09-01] MEDS: THIAMINE HCL 100 MG TABLET (FP) PO SCH (21:13)
[2022-09-02] MEDS: PRENATAL VITAMINS W/ FOLIC ACID TABLET (FP) PO SCH (09:53)
[2022-09-02] MEDS: LACTULOSE 20 GM/30 ML UDC (FOR ORAL USE ONLY) PO SCH ×4 (09:53→21:23)
[2022-09-02] MEDS: levETIRAcetam 500 MG TABLET (FP) PO SCH (09:53)
[2022-09-02] MEDS: NICOTINE 14 MG/24 HOURS TOPICAL PATCH TD SCH (13:37)
[2022-09-02] MEDS: THIAMINE HCL 100 MG TABLET (FP) PO SCH (21:23)
[2022-09-02] MEDS: MELATONIN 5 MG TABLETS PO SCH (21:23)
[2022-09-03] MEDS: levETIRAcetam 500 MG TABLET (FP) PO SCH (09:42)
[2022-09-03] MEDS: LACTULOSE 20 GM/30 ML UDC (FOR ORAL USE ONLY) PO SCH ×4 (09:42→21:20)
[2022-09-03] MEDS: NICOTINE 14 MG/24 HOURS TOPICAL PATCH TD SCH (09:42)
[2022-09-03] MEDS: PRENATAL VITAMINS W/ FOLIC ACID TABLET (FP) PO SCH (09:43)
[2022-09-03 11:17] LABS: BASO % 0.6 % (0-2.0); EOS % 5.4 % (0-4.5); HEMATOCRIT 42.1 % (35.4-49); HEMOGLOBIN 13.5 GM/dL (11.7-16.9); LYMPH % 38.4 % (8-40); MCHC 32.1 g/dl (32.0-35.9); MEAN CELL VOLUME 96.5 fl (80-96); MONO % 14.5 % (3.8-10.2); NEUT % 41.1 % (42.8-82.8); PLATELET COUNT 235 10^3/uL (134-434); RBC 4.37 M/mm3 (4.00-5.60); RDW 15.8 % (11.9-15.9); WHITE BLOOD COUNT 6.5 K/mm3 (4.0-10.0)
[2022-09-03 11:21] LABS: INR 0.89 (0.83-1.09); PROTHROMBIN TIME (PATIENT) 10.3 SEC (9.7-13.0)
[2022-09-03 11:23] LABS: POTASSIUM 4.2 mmol/L (3.5-5.1)
[2022-09-03 11:32] LABS: ALBUMIN 3.9 g/dl (3.4-5.0); BLOOD UREA NITROGEN 24.5 mg/dL (7-18); CALCIUM 9.5 mg/dL (8.5-10.1)
[2022-09-03 11:34] LABS: CREATININE 1.6 mg/dL (0.55-1.3)
[2022-09-03 11:37] LABS: BILIRUBIN,TOTAL 0.8 mg/dL (0.2-1); TOT PROT 7.3 g/dl (6.4-8.2)
[2022-09-03 12:46] LABS: HIV INTERPRETATION NEGATIVE (NEGATIVE)
[2022-09-03] MEDS: THIAMINE HCL 100 MG TABLET (FP) PO SCH (21:20)
[2022-09-03] MEDS: MELATONIN 5 MG TABLETS PO SCH (21:20)
[2022-09-04] MEDS: levETIRAcetam 500 MG TABLET (FP) PO SCH (09:50)
[2022-09-04] MEDS: PRENATAL VITAMINS W/ FOLIC ACID TABLET (FP) PO SCH (09:50)
[2022-09-04] MEDS: LACTULOSE 20 GM/30 ML UDC (FOR ORAL USE ONLY) PO SCH ×4 (09:51→21:28)
[2022-09-04] MEDS: METHOCARBAMOL 500 MG TABLET PO PRN (09:51)
[2022-09-04] MEDS: NICOTINE 14 MG/24 HOURS TOPICAL PATCH TD SCH (09:52)
[2022-09-04] MEDS: MELATONIN 5 MG TABLETS PO SCH (21:28)
[2022-09-04] MEDS: THIAMINE HCL 100 MG TABLET (FP) PO SCH (21:28)
[2022-09-05] MEDS: levETIRAcetam 500 MG TABLET (FP) PO SCH (09:58)
[2022-09-05] MEDS: NICOTINE 14 MG/24 HOURS TOPICAL PATCH TD SCH (09:58)
[2022-09-05] MEDS: LACTULOSE 20 GM/30 ML UDC (FOR ORAL USE ONLY) PO SCH ×4 (09:58→21:22)
[2022-09-05] MEDS: PRENATAL VITAMINS W/ FOLIC ACID TABLET (FP) PO SCH (09:59)
[2022-09-05] MEDS: METHOCARBAMOL 500 MG TABLET PO PRN (21:22)
[2022-09-05] MEDS: MELATONIN 5 MG TABLETS PO SCH (21:22)
[2022-09-05] MEDS: THIAMINE HCL 100 MG TABLET (FP) PO SCH (21:22)
[2022-09-06] MEDS: NICOTINE 14 MG/24 HOURS TOPICAL PATCH TD SCH (09:31)
[2022-09-06] MEDS: levETIRAcetam 500 MG TABLET (FP) PO SCH (09:31)
[2022-09-06] MEDS: LACTULOSE 20 GM/30 ML UDC (FOR ORAL USE ONLY) PO SCH ×4 (09:31→21:38)
[2022-09-06] MEDS: PRENATAL VITAMINS W/ FOLIC ACID TABLET (FP) PO SCH (09:32)
[2022-09-06] MEDS: METHOCARBAMOL 500 MG TABLET PO PRN (21:38)
[2022-09-06] MEDS: MELATONIN 5 MG TABLETS PO SCH (21:38)
[2022-09-06] MEDS: THIAMINE HCL 100 MG TABLET (FP) PO SCH (21:38)
[2022-09-07] MEDS: LACTULOSE 20 GM/30 ML UDC (FOR ORAL USE ONLY) PO SCH ×4 (09:38→21:39)
[2022-09-07] MEDS: PRENATAL VITAMINS W/ FOLIC ACID TABLET (FP) PO SCH (09:38)
[2022-09-07] MEDS: levETIRAcetam 500 MG TABLET (FP) PO SCH (09:38)
[2022-09-07] MEDS: NICOTINE 14 MG/24 HOURS TOPICAL PATCH TD SCH (09:38)
[2022-09-07] MEDS: MELATONIN 5 MG TABLETS PO SCH (21:39)
[2022-09-07] MEDS: THIAMINE HCL 100 MG TABLET (FP) PO SCH (21:39)
[2022-09-08] MEDS: LACTULOSE 20 GM/30 ML UDC (FOR ORAL USE ONLY) PO SCH ×4 (09:50→21:29)
[2022-09-08] MEDS: levETIRAcetam 500 MG TABLET (FP) PO SCH (09:50)
[2022-09-08] MEDS: NICOTINE 14 MG/24 HOURS TOPICAL PATCH TD SCH (09:50)
[2022-09-08] MEDS: PRENATAL VITAMINS W/ FOLIC ACID TABLET (FP) PO SCH (09:50)
[2022-09-08] MEDS: MELATONIN 5 MG TABLETS PO SCH (21:29)
[2022-09-08] MEDS: THIAMINE HCL 100 MG TABLET (FP) PO SCH (21:29)
[2022-09-09] MEDS: PRENATAL VITAMINS W/ FOLIC ACID TABLET (FP) PO SCH (09:53)
[2022-09-09] MEDS: levETIRAcetam 500 MG TABLET (FP) PO SCH (09:53)
[2022-09-09] MEDS: NICOTINE 14 MG/24 HOURS TOPICAL PATCH TD SCH (09:53)
[2022-09-09] MEDS: LACTULOSE 20 GM/30 ML UDC (FOR ORAL USE ONLY) PO SCH ×4 (09:53→21:38)
[2022-09-09 11:21] LABS: POTASSIUM 4.7 mmol/L (3.5-5.1)
[2022-09-09 11:27] LABS: CALCIUM 9.4 mg/dL (8.5-10.1)
[2022-09-09 11:28] LABS: ALBUMIN 3.7 g/dl (3.4-5.0); BLOOD UREA NITROGEN 29.8 mg/dL (7-18)
[2022-09-09 11:31] LABS: CREATININE 1.6 mg/dL (0.55-1.3)
[2022-09-09 11:32] LABS: TOT PROT 6.6 g/dl (6.4-8.2)
[2022-09-09 11:33] LABS: BILIRUBIN,TOTAL 0.4 mg/dL (0.2-1)
[2022-09-09] MEDS: MELATONIN 5 MG TABLETS PO SCH (21:38)
[2022-09-09] MEDS: THIAMINE HCL 100 MG TABLET (FP) PO SCH (21:38)
[2022-09-10] MEDS: levETIRAcetam 500 MG TABLET (FP) PO SCH ×2 (10:19→10:48)
[2022-09-10] MEDS: LACTULOSE 20 GM/30 ML UDC (FOR ORAL USE ONLY) PO SCH ×5 (10:19→21:31)
[2022-09-10] MEDS: PRENATAL VITAMINS W/ FOLIC ACID TABLET (FP) PO SCH ×2 (10:19→10:50)
[2022-09-10] MEDS: NICOTINE 14 MG/24 HOURS TOPICAL PATCH TD SCH ×2 (10:19→10:48)
[2022-09-10] MEDS ORDERED: BACLOFEN 10 MG TABLET (FP) PO PRN (10:38)
[2022-09-10] MEDS: RIFAXIMIN 550 MG TABLET PO SCH ×2 (11:20→21:31)
[2022-09-10] MEDS: MELATONIN 5 MG TABLETS PO SCH (21:30)
[2022-09-10] MEDS: THIAMINE HCL 100 MG TABLET (FP) PO SCH (21:30)
[2022-09-11] MEDS: NICOTINE 14 MG/24 HOURS TOPICAL PATCH TD SCH (10:05)
[2022-09-11] MEDS: levETIRAcetam 500 MG TABLET (FP) PO SCH (10:06)
[2022-09-11] MEDS: PRENATAL VITAMINS W/ FOLIC ACID TABLET (FP) PO SCH (10:06)
[2022-09-11] MEDS: RIFAXIMIN 550 MG TABLET PO SCH ×2 (10:06→21:30)
[2022-09-11] MEDS: LACTULOSE 20 GM/30 ML UDC (FOR ORAL USE ONLY) PO SCH ×4 (10:06→21:30)
[2022-09-11] MEDS: MELATONIN 5 MG TABLETS PO SCH (21:31)
[2022-09-11] MEDS: THIAMINE HCL 100 MG TABLET (FP) PO SCH (21:31)
[2022-09-12] MEDS: levETIRAcetam 500 MG TABLET (FP) PO SCH (09:38)
[2022-09-12] MEDS: LACTULOSE 20 GM/30 ML UDC (FOR ORAL USE ONLY) PO SCH ×4 (09:39→21:39)
[2022-09-12] MEDS: PRENATAL VITAMINS W/ FOLIC ACID TABLET (FP) PO SCH (09:39)
[2022-09-12] MEDS: NICOTINE 14 MG/24 HOURS TOPICAL PATCH TD SCH (09:39)
[2022-09-12] MEDS: RIFAXIMIN 550 MG TABLET PO SCH ×2 (10:41→21:39)
[2022-09-12] MEDS: MELATONIN 5 MG TABLETS PO SCH (21:39)
[2022-09-12] MEDS: THIAMINE HCL 100 MG TABLET (FP) PO SCH (21:39)
[2022-09-13 07:19] VITALS: RESP 18; TEMP 96.9
[2022-09-13] MEDS: LACTULOSE 20 GM/30 ML UDC (FOR ORAL USE ONLY) PO SCH ×4 (09:31→21:10)
[2022-09-13] MEDS: PRENATAL VITAMINS W/ FOLIC ACID TABLET (FP) PO SCH (09:31)
[2022-09-13] MEDS: levETIRAcetam 500 MG TABLET (FP) PO SCH (09:31)
[2022-09-13] MEDS: RIFAXIMIN 550 MG TABLET PO SCH ×2 (09:31→21:10)
[2022-09-13] MEDS: NICOTINE 14 MG/24 HOURS TOPICAL PATCH TD SCH (09:32)
[2022-09-13] MEDS: THIAMINE HCL 100 MG TABLET (FP) PO SCH (21:10)
[2022-09-13] MEDS: MELATONIN 5 MG TABLETS PO SCH (21:10)
[2022-09-14] MEDS: PRENATAL VITAMINS W/ FOLIC ACID TABLET (FP) PO SCH (09:52)
[2022-09-14] MEDS: RIFAXIMIN 550 MG TABLET PO SCH ×2 (09:52→21:12)
[2022-09-14] MEDS: NICOTINE 14 MG/24 HOURS TOPICAL PATCH TD SCH (09:52)
[2022-09-14] MEDS: LACTULOSE 20 GM/30 ML UDC (FOR ORAL USE ONLY) PO SCH ×4 (09:52→21:12)
[2022-09-14] MEDS: levETIRAcetam 500 MG TABLET (FP) PO SCH (09:52)
[2022-09-14 13:11] LABS: POTASSIUM 5.4 mmol/L (3.5-5.1)
[2022-09-14 13:18] LABS: ALBUMIN 3.5 g/dl (3.4-5.0); CALCIUM 9.2 mg/dL (8.5-10.1)
[2022-09-14 13:19] LABS: BLOOD UREA NITROGEN 34.6 mg/dL (7-18)
[2022-09-14 13:21] LABS: CREATININE 1.8 mg/dL (0.55-1.3)
[2022-09-14 13:23] LABS: BILIRUBIN,TOTAL 0.2 mg/dL (0.2-1); TOT PROT 6.3 g/dl (6.4-8.2)
[2022-09-14] MEDS: MELATONIN 5 MG TABLETS PO SCH (21:12)
[2022-09-14] MEDS: THIAMINE HCL 100 MG TABLET (FP) PO SCH (21:12)
[2022-09-15 09:09] VITALS: BP 99/67; PULSE 77
[2022-09-15] MEDS: LACTULOSE 20 GM/30 ML UDC (FOR ORAL USE ONLY) PO SCH ×4 (10:09→21:14)
[2022-09-15] MEDS: RIFAXIMIN 550 MG TABLET PO SCH ×2 (10:09→21:14)
[2022-09-15] MEDS: NICOTINE 14 MG/24 HOURS TOPICAL PATCH TD SCH (10:09)
[2022-09-15] MEDS: levETIRAcetam 500 MG TABLET (FP) PO SCH (10:09)
[2022-09-15] MEDS: PRENATAL VITAMINS W/ FOLIC ACID TABLET (FP) PO SCH (10:09)
[2022-09-15] MEDS ORDERED: SODIUM POLYSTYRENE SULFONATE 15 GM/60 ML BOTTLE PO ONE (15:45)
[2022-09-15] MEDS ORDERED: SODIUM POLYSTYRENE SULFONATE 15 GM/60 ML BOTTLE ONE ×2 (16:53→17:04)
[2022-09-15] MEDS: MELATONIN 5 MG TABLETS PO SCH (21:14)
[2022-09-15] MEDS: THIAMINE HCL 100 MG TABLET (FP) PO SCH (21:14)
[2022-09-16] MEDS: LACTULOSE 20 GM/30 ML UDC (FOR ORAL USE ONLY) PO SCH (09:06)
[2022-09-16] MEDS: RIFAXIMIN 550 MG TABLET PO SCH ×2 (09:06→09:09)
[2022-09-16] MEDS: PRENATAL VITAMINS W/ FOLIC ACID TABLET (FP) PO SCH (09:06)
[2022-09-16] MEDS: levETIRAcetam 500 MG TABLET (FP) PO SCH (09:06)
[2022-09-16] MEDS: NICOTINE 14 MG/24 HOURS TOPICAL PATCH TD SCH ×2 (09:06→09:09)
== END 2022-09-16 09:12 | disposition home or self-care (01) | DRG 772 ==
LOC: YASAS 14:41 → Y3E 14:42
PROVIDERS: ADMIT Allergy & Immunology; ATTEND Psychiatry & Neurology Pain Medicine
PROC: HZ42ZZZ Group Counseling for Substance Abuse Treatment, Cognitive-Behavioral (ICD-10-PCS; principal; 2022-09-01)
DX: F10.20 Alcohol dependence, uncomplicated (principal); F14.10 Cocaine abuse, uncomplicated; F17.210 Nicotine dependence, cigarettes, uncomplicated; E72.20 Disorder of urea cycle metabolism, unspecified; E87.5 Hyperkalemia; G40.909 Epilepsy, unspecified, not intractable, without status epilepticus; I12.9 Hypertensive chronic kidney disease with stage 1 through stage 4 chronic kidney disease, or unspecified chronic kidney disease; N18.9 Chronic kidney disease, unspecified; R76.11 Nonspecific reaction to tuberculin skin test without active tuberculosis; R74.8 Abnormal levels of other serum enzymes; Z89.012 Acquired absence of left thumb
CPT/HCPCS: 36415; 80053; 82140; 85025; 85610; 86704; 86707; 86708; 86709; 86803; 87350; 87380; 87389

== ENCOUNTER 2023-05-14 14:55 | Inpatient (IN) | payer OTHER ==
[2023-05-14 17:08] VITALS: BMI 21.6
[2023-05-14] MEDS ORDERED: guaiFENesin 600 MG TABLET.ER (FP) PO PRN (18:00)
[2023-05-14] MEDS ORDERED: POLYETHYLENE GLYCOL (HEALTHYLAX) 3350 17 GM PACKET PO PRN (18:00)
[2023-05-14] MEDS ORDERED: BENZOCAINE/MENTHOL (CHLORASEPTIC ) LOZENGE MM PRN (18:00)
[2023-05-14] MEDS ORDERED: LOPERAMIDE HCL 2 MG CAPSULE PO PRN (18:00)
[2023-05-14] MEDS ORDERED: MAG HYDROX/AL HYDROX/SIMETH 30 ML UNIT-DOSE CUP PO PRN (18:00)
[2023-05-14] MEDS ORDERED: BISMUTH SUBSALICYLATE 524 MG/30 ML PO PRN (18:00)
[2023-05-14] MEDS ORDERED: ONDANSETRON *ODT* 4 MG TABLET SL PRN (18:00)
[2023-05-14] MEDS ORDERED: DICYCLOMINE HCL 10 MG CAPSULE PO PRN (18:00)
[2023-05-14] MEDS ORDERED: IBUPROFEN 400 MG TABLET (FP) PO PRN (18:00)
[2023-05-14] MEDS ORDERED: BENZONATATE 200 MG CAPSULE PO PRN (18:00)
[2023-05-14] MEDS ORDERED: NICOTINE POLACRILEX 2 MG GUM BUC PRN (18:02)
[2023-05-14] MEDS ORDERED: levETIRAcetam 500 MG TABLET (FP) PO ONE (19:29)
[2023-05-14] MEDS: levETIRAcetam 500 MG TABLET (FP) PO SCH ×2 (19:29→19:44)
[2023-05-14] MEDS: hydrOXYzine PAMOATE 25 MG CAPSULE (FP) PO PRN (20:07)
[2023-05-14] MEDS: MELATONIN 5 MG TABLETS PO SCH (22:52)
[2023-05-14] MEDS: METHOCARBAMOL 500 MG TABLET PO PRN (22:53)
[2023-05-14] MEDS: THIAMINE HCL 100 MG TABLET (FP) PO SCH (22:53)
[2023-05-15] MEDS ORDERED: LORazepam 1 MG TABLET PO PRN (08:50)
[2023-05-15] MEDS: PRENATAL VITAMINS W/ FOLIC ACID TABLET (FP) PO SCH (10:23)
[2023-05-15] MEDS: LORazepam 2 MG TABLET PO SCH (10:25)
[2023-05-15 12:50] LABS: HEMATOCRIT 36.5 % (35.4-49); HEMOGLOBIN 12.4 GM/dL (11.7-16.9); MCH 32.9 pg (25.7-33.7); MCHC 34.1 g/dl (32.0-35.9); MEAN CELL VOLUME 96.4 fl (80-96); MEAN PLT VOLUME 8.1 fl (7.5-11.1); PLATELET COUNT 273 10^3/uL (134-434); RBC 3.78 M/mm3 (4.00-5.60); RDW 15.5 % (11.9-15.9); WHITE BLOOD COUNT 6.6 K/mm3 (4.0-10.0)
[2023-05-15 13:14] LABS: POTASSIUM 3.8 mmol/L (3.5-5.1)
[2023-05-15 13:18] LABS: CALCIUM 8.9 mg/dL (8.5-10.1)
[2023-05-15 13:19] LABS: ALBUMIN 3.2 g/dl (3.4-5.0); BLOOD UREA NITROGEN 27.6 mg/dL (7-18)
[2023-05-15 13:22] LABS: CREATININE 1.5 mg/dL (0.55-1.3)
[2023-05-15 13:31] LABS: BILIRUBIN,TOTAL 0.8 mg/dL (0.2-1)
[2023-05-15] MEDS: cloNIDine HCL 0.1 MG TABLET PO PRN (13:41)
[2023-05-16] MEDS: MAGNESIUM HYDROX 2400MG/30ML ORAL SUSPENSION 30 ML CUP PO PRN (17:38)
[2023-05-16] MEDS: IBUPROFEN 600 MG TABLET (FP) PO PRN (17:40)
[2023-05-16] MEDS: ACETAMINOPHEN 325 MG TABLET (FP) PO PRN (23:10)
[2023-05-17] MEDS: LORazepam 1 MG TABLET PO SCH (05:32)
[2023-05-17] MEDS: levETIRAcetam 500 MG TABLET (FP) PO SCH (10:42)
[2023-05-17] MEDS: amLODIPine BESYLATE 5 MG TABLET (FP) PO SCH (11:06)
[2023-05-17 21:24] VITALS: RESP 18
[2023-05-18] MEDS ORDERED: LORazepam 0.5 MG TABLET PO PRN
[2023-05-18] MEDS: LORazepam 0.5 MG TABLET PO SCH (04:49)
[2023-05-18 09:07] VITALS: BP 129/33; PULSE 85; TEMP 97.5
[2023-05-19] MEDS ORDERED: LORazepam 0.5 MG TABLET PO ONE (05:00)
== END 2023-05-18 10:20 | disposition home or self-care (01) | DRG 775 ==
LOC: YASAS 14:55 → Y6N 19:15
PROVIDERS: ADMIT Allergy & Immunology; ATTEND Surgery
PROC: HZ2ZZZZ Detoxification Services for Substance Abuse Treatment (ICD-10-PCS; principal; 2023-05-14)
DX: F10.230 Alcohol dependence with withdrawal, uncomplicated (principal); F17.210 Nicotine dependence, cigarettes, uncomplicated; G40.909 Epilepsy, unspecified, not intractable, without status epilepticus; I10 Essential (primary) hypertension; R73.9 Hyperglycemia, unspecified; Z86.11 Personal history of tuberculosis; Z59.00 Homelessness unspecified
CPT/HCPCS: 0241U-QW; 36415; 80053; 80305; 85027; 86780; 87811

== ENCOUNTER 2023-08-12 09:58 | Inpatient (IN) | payer OTHER ==
[2023-08-12 10:26] VITALS: BMI 20.9
[2023-08-12] MEDS ORDERED: POLYETHYLENE GLYCOL (HEALTHYLAX) 3350 17 GM PACKET PO PRN (11:23)
[2023-08-12] MEDS ORDERED: DICYCLOMINE HCL 10 MG CAPSULE PO PRN (11:23)
[2023-08-12] MEDS ORDERED: NICOTINE POLACRILEX 2 MG GUM BUC PRN (11:23)
[2023-08-12] MEDS ORDERED: LOPERAMIDE HCL 2 MG CAPSULE PO PRN (11:23)
[2023-08-12] MEDS ORDERED: diazePAM 5 MG TABLET PO PRN (11:23)
[2023-08-12] MEDS ORDERED: NICOTINE 7 MG/24 HOURS TOPICAL PATCH TD PRN (11:23)
[2023-08-12] MEDS ORDERED: BENZOCAINE/MENTHOL (CHLORASEPTIC ) LOZENGE MM PRN (11:23)
[2023-08-12] MEDS ORDERED: ACETAMINOPHEN 325 MG TABLET (FP) PO PRN (11:23)
[2023-08-12] MEDS ORDERED: MAG HYDROX/AL HYDROX/SIMETH 30 ML UNIT-DOSE CUP PO PRN (11:23)
[2023-08-12] MEDS ORDERED: BISMUTH SUBSALICYLATE 262 MG/15 ML BTL PO PRN (11:23)
[2023-08-12] MEDS ORDERED: guaiFENesin 600 MG TABLET.ER (FP) PO PRN (11:23)
[2023-08-12] MEDS ORDERED: ONDANSETRON *ODT* 4 MG TABLET SL PRN (11:23)
[2023-08-12] MEDS ORDERED: IBUPROFEN 400 MG TABLET (FP) PO PRN (11:23)
[2023-08-12] MEDS ORDERED: BENZONATATE 200 MG CAPSULE PO PRN (11:23)
[2023-08-12] MEDS ORDERED: MAGNESIUM HYDROX 2400MG/30ML ORAL SUSPENSION 30 ML CUP PO PRN (11:23)
[2023-08-12] MEDS ORDERED: hydrOXYzine PAMOATE 25 MG CAPSULE (FP) PO PRN (11:23)
[2023-08-12] MEDS ORDERED: amLODIPine BESYLATE 5 MG TABLET (FP) ONE (11:39)
[2023-08-12] MEDS: amLODIPine BESYLATE 5 MG TABLET (FP) PO SCH (11:48)
[2023-08-12] MEDS: IBUPROFEN 600 MG TABLET (FP) PO PRN (13:00)
[2023-08-12] MEDS: diazePAM 5 MG TABLET PO SCH (17:35)
[2023-08-12] MEDS: MELATONIN 5 MG TABLETS PO SCH (22:18)
[2023-08-12] MEDS: THIAMINE 100 MG TABLET PO SCH (22:19)
[2023-08-12] MEDS: METHOCARBAMOL 500 MG TABLET PO PRN (22:19)
[2023-08-12] MEDS: levETIRAcetam 500 MG TABLET (FP) PO SCH (22:19)
[2023-08-13] MEDS: FAMOTIDINE 20 MG TABLET PO SCH (06:42)
[2023-08-13] MEDS: PRENATAL VITAMINS W/ FOLIC ACID TABLET (FP) PO SCH (10:32)
[2023-08-13 10:50] LABS: POTASSIUM 4.8 mmol/L (3.5-5.1)
[2023-08-13 10:54] LABS: HEMATOCRIT 38.4 % (35.4-49); HEMOGLOBIN 12.6 GM/dL (11.7-16.9); MCH 32.3 pg (25.7-33.7); MCHC 32.9 g/dl (32.0-35.9); MEAN CELL VOLUME 98.3 fl (80-96); MEAN PLT VOLUME 8.6 fl (7.5-11.1); PLATELET COUNT 194 10^3/uL (134-434); RBC 3.91 M/mm3 (4.00-5.60); WHITE BLOOD COUNT 5.7 K/mm3 (4.0-10.0)
[2023-08-13] MEDS: NALTREXONE HCL 50 MG TABLET PO SCH (10:55)
[2023-08-13 10:57] LABS: CALCIUM 8.5 mg/dL (8.5-10.1)
[2023-08-13 10:58] LABS: ALBUMIN 3.5 g/dl (3.4-5.0); BLOOD UREA NITROGEN 22.5 mg/dL (7-18)
[2023-08-13 11:01] LABS: CREATININE 1.4 mg/dL (0.55-1.3)
[2023-08-13 11:02] LABS: BILIRUBIN,TOTAL 0.8 mg/dL (0.2-1); TOT PROT 6.6 g/dl (6.4-8.2)
[2023-08-13 13:26] VITALS: RESP 18
[2023-08-14] MEDS: diazePAM 5 MG TABLET PO SCH (05:53)
[2023-08-14 09:03] VITALS: BP 128/90; PULSE 70; TEMP 98.9
[2023-08-15] MEDS ORDERED: diazePAM 5 MG TABLET PO SCH (06:00)
[2023-08-16] MEDS ORDERED: diazePAM 5 MG TABLET PO ONE (06:00)
== END 2023-08-14 11:09 | disposition left against medical advice (07) | DRG 770 ==
LOC: YASAS 09:58 → Y3N 11:36
PROVIDERS: ADMIT Allergy & Immunology; ATTEND Surgery
PROC: HZ2ZZZZ Detoxification Services for Substance Abuse Treatment (ICD-10-PCS; principal; 2023-08-12)
DX: F10.230 Alcohol dependence with withdrawal, uncomplicated (principal); F14.10 Cocaine abuse, uncomplicated; F17.210 Nicotine dependence, cigarettes, uncomplicated; I10 Essential (primary) hypertension; K21.9 Gastro-esophageal reflux disease without esophagitis; R56.9 Unspecified convulsions; R76.11 Nonspecific reaction to tuberculin skin test without active tuberculosis
CPT/HCPCS: 36415; 80053; 80305; 80307; 85027; 86780; 93005; 93010

== ENCOUNTER 2023-12-23 11:42 | Inpatient (IN) | payer OTHER ==
[2023-12-23 12:13] VITALS: BMI 20.7
[2023-12-23] MEDS ORDERED: MAG HYDROX/AL HYDROX/SIMETH 30 ML UNIT-DOSE CUP PO PRN (12:26)
[2023-12-23] MEDS ORDERED: IBUPROFEN 600 MG TABLET (FP) PO PRN (12:26)
[2023-12-23] MEDS ORDERED: IBUPROFEN 400 MG TABLET (FP) PO PRN (12:26)
[2023-12-23] MEDS ORDERED: BENZOCAINE/MENTHOL (CHLORASEPTIC ) LOZENGE MM PRN (12:26)
[2023-12-23] MEDS ORDERED: ONDANSETRON *ODT* 4 MG TABLET SL PRN (12:26)
[2023-12-23] MEDS ORDERED: MAGNESIUM HYDROX 2400MG/30ML ORAL SUSPENSION 30 ML CUP PO PRN (12:26)
[2023-12-23] MEDS ORDERED: NICOTINE POLACRILEX 2 MG LOZENGE BC PRN (12:26)
[2023-12-23] MEDS ORDERED: ACETAMINOPHEN 325 MG TABLET (FP) PO PRN (12:26)
[2023-12-23] MEDS ORDERED: NICOTINE POLACRILEX 2 MG GUM BUC PRN (12:26)
[2023-12-23] MEDS ORDERED: LOPERAMIDE HCL 2 MG CAPSULE PO PRN (12:26)
[2023-12-23] MEDS ORDERED: BENZONATATE 200 MG CAPSULE PO PRN (12:26)
[2023-12-23] MEDS ORDERED: POLYETHYLENE GLYCOL (HEALTHYLAX) 3350 17 GM PACKET PO PRN (12:26)
[2023-12-23] MEDS ORDERED: guaiFENesin 600 MG TABLET.ER (FP) PO PRN (12:26)
[2023-12-23] MEDS ORDERED: levETIRAcetam 500 MG TABLET (FP) PO ONE (13:15)
[2023-12-23] MEDS ORDERED: amLODIPine BESYLATE 5 MG TABLET (FP) ONE (13:15)
[2023-12-23] MEDS: amLODIPine BESYLATE 5 MG TABLET (FP) PO SCH (13:20)
[2023-12-23] MEDS: levETIRAcetam 500 MG TABLET (FP) PO SCH (13:20)
[2023-12-23] MEDS: METHOCARBAMOL 500 MG TABLET PO PRN (17:59)
[2023-12-23] MEDS: hydrOXYzine PAMOATE 25 MG CAPSULE (FP) PO PRN (17:59)
[2023-12-23] MEDS: BISMUTH SUBSALICYLATE 262 MG/15 ML BTL PO PRN (18:00)
[2023-12-23] MEDS: cloNIDine HCL 0.1 MG TABLET PO ONE (22:04)
[2023-12-23] MEDS: THIAMINE 100 MG TABLET PO SCH (22:04)
[2023-12-23] MEDS: MELATONIN 5 MG TABLETS PO SCH (22:04)
[2023-12-24] MEDS ORDERED: LORazepam 1 MG TABLET PO PRN (09:18)
[2023-12-24] MEDS: PRENATAL VITAMINS W/ FOLIC ACID TABLET (FP) PO SCH (09:27)
[2023-12-24] MEDS: LORazepam 2 MG TABLET PO SCH (10:32)
[2023-12-24 15:13] LABS: HEMATOCRIT 37.6 % (35.4-49); HEMOGLOBIN 12.3 GM/dL (11.7-16.9); MCH 32.5 pg (25.7-33.7); MCHC 32.6 g/dl (32.0-35.9); MEAN CELL VOLUME 99.7 fl (80-96); MEAN PLT VOLUME 8.5 fl (7.5-11.1); PLATELET COUNT 198 10^3/uL (134-434); RBC 3.77 M/mm3 (4.00-5.60); RDW 15.6 % (11.9-15.9); WHITE BLOOD COUNT 6.6 K/mm3 (4.0-10.0)
[2023-12-24] MEDS: NICOTINE 7 MG/24 HOURS TOPICAL PATCH TD SCH (15:30)
[2023-12-24] MEDS: CYPROHEPTADINE HCL 4 MG TABLET PO SCH (16:47)
[2023-12-24 17:09] LABS: POTASSIUM 4.3 mmol/L (3.5-5.1)
[2023-12-24 17:11] LABS: ALBUMIN 3.7 g/dl (3.4-5.0); CALCIUM 9.2 mg/dL (8.5-10.1)
[2023-12-24 17:12] LABS: BLOOD UREA NITROGEN 26.5 mg/dL (7-18)
[2023-12-24 17:15] LABS: CREATININE 1.6 mg/dL (0.55-1.3)
[2023-12-24 17:17] LABS: BILIRUBIN,TOTAL 0.7 mg/dL (0.2-1); TOT PROT 6.7 g/dl (6.4-8.2)
[2023-12-24] MEDS: SODIUM CHLORIDE NASAL SPRAY 44 ML BOTTLE NS SCH (22:21)
[2023-12-25] MEDS: LORazepam 1 MG TABLET PO SCH (05:58)
[2023-12-26] MEDS ORDERED: LORazepam 0.5 MG TABLET PO PRN
[2023-12-26] MEDS: LORazepam 0.5 MG TABLET PO SCH (05:45)
[2023-12-26] MEDS: DICYCLOMINE HCL 10 MG CAPSULE PO PRN (17:24)
[2023-12-26 21:06] VITALS: RESP 16
[2023-12-27] MEDS: LORazepam 0.5 MG TABLET PO ONE (05:43)
[2023-12-27 09:12] VITALS: BP 112/87; PULSE 109; TEMP 97.8
== END 2023-12-27 10:00 | disposition home or self-care (01) | DRG 775 ==
LOC: YASAS 11:42 → Y6N 12:50
PROVIDERS: ADMIT Allergy & Immunology; ATTEND Surgery
PROC: HZ2ZZZZ Detoxification Services for Substance Abuse Treatment (ICD-10-PCS; principal; 2023-12-23)
DX: F10.230 Alcohol dependence with withdrawal, uncomplicated (principal); F10.288 Alcohol dependence with other alcohol-induced disorder; I10 Essential (primary) hypertension; N28.9 Disorder of kidney and ureter, unspecified; R09.81 Nasal congestion; R63.4 Abnormal weight loss; Z68.20 Body mass index [BMI] 20.0-20.9, adult; Z86.69 Personal history of other diseases of the nervous system and sense organs; Z86.11 Personal history of tuberculosis
CPT/HCPCS: 36415; 71045-TC-FY; 80053; 80305; 80307; 85027; 86780

== ENCOUNTER 2024-02-19 11:42 | Inpatient (IN) | payer OTHER ==
[2024-02-19] MEDS ORDERED: IBUPROFEN 400 MG TABLET (FP) PO PRN (12:53)
[2024-02-19] MEDS ORDERED: ACETAMINOPHEN 325 MG TABLET (FP) PO PRN (12:53)
[2024-02-19] MEDS ORDERED: guaiFENesin 600 MG TABLET.ER (FP) PO PRN (12:53)
[2024-02-19] MEDS ORDERED: DICYCLOMINE HCL 10 MG CAPSULE PO PRN (12:53)
[2024-02-19] MEDS ORDERED: POLYETHYLENE GLYCOL (HEALTHYLAX) 3350 17 GM PACKET PO PRN (12:53)
[2024-02-19] MEDS ORDERED: NALOXONE (NARCAN) HCL 4 MG/0.1 ML SPRAY NS PRN (12:53)
[2024-02-19] MEDS ORDERED: LOPERAMIDE HCL 2 MG CAPSULE PO PRN (12:53)
[2024-02-19] MEDS ORDERED: BISMUTH SUBSALICYLATE 524 MG/30 ML PO PRN (12:53)
[2024-02-19] MEDS ORDERED: LORazepam 1 MG TABLET PO PRN (12:53)
[2024-02-19] MEDS ORDERED: hydrOXYzine PAMOATE 25 MG CAPSULE (FP) PO PRN (12:53)
[2024-02-19] MEDS ORDERED: ONDANSETRON *ODT* 4 MG TABLET SL PRN (12:53)
[2024-02-19] MEDS ORDERED: IBUPROFEN 600 MG TABLET (FP) PO PRN (12:53)
[2024-02-19] MEDS ORDERED: MAG HYDROX/AL HYDROX/SIMETH 30 ML UNIT-DOSE CUP PO PRN (12:53)
[2024-02-19] MEDS ORDERED: BENZONATATE 200 MG CAPSULE PO PRN (12:53)
[2024-02-19] MEDS ORDERED: BENZOCAINE/MENTHOL (CHLORASEPTIC ) LOZENGE MM PRN (12:53)
[2024-02-19] MEDS ORDERED: MAGNESIUM HYDROX 2400MG/30ML ORAL SUSPENSION 30 ML CUP PO PRN (12:53)
[2024-02-19 12:56] VITALS: BMI 20.9
[2024-02-19] MEDS ORDERED: levETIRAcetam 500 MG TABLET (FP) PO ONE (13:56)
[2024-02-19] MEDS: levETIRAcetam 500 MG TABLET (FP) PO SCH (13:57)
[2024-02-19] MEDS: PRENATAL VITAMINS W/ FOLIC ACID TABLET (FP) PO SCH (13:57)
[2024-02-19] MEDS ORDERED: PRENATAL VITAMINS W/ FOLIC ACID TABLET (FP) PO ONE (13:57)
[2024-02-19] MEDS: CYPROHEPTADINE HCL 4 MG TABLET PO SCH (17:30)
[2024-02-19] MEDS: LORazepam 2 MG TABLET PO SCH (17:42)
[2024-02-19] MEDS: ACAMPROSATE CALCIUM 333 MG TABLET.DR PO SCH (22:47)
[2024-02-19] MEDS: THIAMINE 100 MG TABLET PO SCH (22:48)
[2024-02-19] MEDS: MELATONIN 5 MG TABLETS PO SCH (22:48)
[2024-02-20] MEDS: amLODIPine BESYLATE 5 MG TABLET (FP) PO SCH (09:41)
[2024-02-21] MEDS: LORazepam 1 MG TABLET PO SCH (06:02)
[2024-02-21 08:36] LABS: EOS % 9.4 % (0-4.5); HEMATOCRIT 36.8 % (35.4-49); HEMOGLOBIN 12.2 GM/dL (11.7-16.9); LYMPH % 40.9 % (8-40); MCH 32.5 pg (25.7-33.7); MCHC 33.2 g/dl (32.0-35.9); MEAN CELL VOLUME 97.8 fl (80-96); MEAN PLT VOLUME 8.1 fl (7.5-11.1); MONO % 7.2 % (3.8-10.2); NEUT % 41.5 % (42.8-82.8); PLATELET COUNT 287 10^3/uL (134-434); RBC 3.76 M/mm3 (4.00-5.60); RDW 14.9 % (11.9-15.9); WHITE BLOOD COUNT 5.4 K/mm3 (4.0-10.0)
[2024-02-21 08:41] LABS: CALCIUM 9.2 mg/dL (8.5-10.1)
[2024-02-21 08:42] LABS: ALBUMIN 3.2 g/dl (3.4-5.0); BLOOD UREA NITROGEN 24.8 mg/dL (7-18)
[2024-02-21 08:44] LABS: CREATININE 1.9 mg/dL (0.55-1.3)
[2024-02-21 08:46] LABS: BILIRUBIN,TOTAL 0.3 mg/dL (0.2-1); TOT PROT 6.1 g/dl (6.4-8.2)
[2024-02-22] MEDS: LORazepam 0.5 MG TABLET PO SCH (05:52)
[2024-02-22] MEDS: LORazepam 0.5 MG TABLET PO PRN (10:35)
[2024-02-22] MEDS: METHOCARBAMOL 500 MG TABLET PO PRN (10:38)
[2024-02-22] MEDS: NALOXONE (NYS OPIOID OVERDOSE PROGRAM) 4 MG/0.1 ML SPRAY NS SCH (17:45)
[2024-02-23] MEDS: LORazepam 0.5 MG TABLET PO ONE (06:21)
[2024-02-24 11:12] LABS: BASO % 0.9 % (0-2.0); EOS % 7.9 % (0-4.5); HEMATOCRIT 36.8 % (35.4-49); HEMOGLOBIN 12.1 GM/dL (11.7-16.9); LYMPH % 40.5 % (8-40); MCH 31.6 pg (25.7-33.7); MCHC 32.9 g/dl (32.0-35.9); MEAN CELL VOLUME 96.2 fl (80-96); MEAN PLT VOLUME 8.3 fl (7.5-11.1); MONO % 8.9 % (3.8-10.2); NEUT % 41.8 % (42.8-82.8); PLATELET COUNT 227 10^3/uL (134-434); RBC 3.82 M/mm3 (4.00-5.60); RDW 14.9 % (11.9-15.9); WHITE BLOOD COUNT 6.7 K/mm3 (4.0-10.0)
[2024-02-24 11:58] LABS: POTASSIUM 3.9 mmol/L (3.5-5.1)
[2024-02-24 12:06] LABS: CALCIUM 8.7 mg/dL (8.5-10.1)
[2024-02-24 12:07] LABS: ALBUMIN 3.1 g/dl (3.4-5.0); BLOOD UREA NITROGEN 30.4 mg/dL (7-18)
[2024-02-24 12:10] LABS: CREATININE 1.5 mg/dL (0.55-1.3)
[2024-02-24 12:12] LABS: BILIRUBIN,TOTAL 0.2 mg/dL (0.2-1); TOT PROT 5.8 g/dl (6.4-8.2)
[2024-02-25 09:11] VITALS: BP 118/72; PULSE 67; RESP 14; TEMP 97.8
[2024-02-25] MEDS ORDERED: NALOXONE (NYS OPIOID OVERDOSE PROGRAM) 4 MG/0.1 ML SPRAY NS SCH (11:30)
[2024-02-25] MEDS ORDERED: ACAMPROSATE CALCIUM 333 MG TABLET.DR PO SCH (14:00)
[2024-02-25] MEDS ORDERED: CYPROHEPTADINE HCL 4 MG TABLET PO SCH (16:30)
== END 2024-02-25 10:43 | disposition other institution (70) | DRG 774 ==
LOC: YASAS 11:42 → Y3N 13:33
PROVIDERS: ADMIT Allergy & Immunology; ATTEND Surgery
PROC: HZ2ZZZZ Detoxification Services for Substance Abuse Treatment (ICD-10-PCS; principal; 2024-02-19)
DX: F14.20 Cocaine dependence, uncomplicated (principal); F10.230 Alcohol dependence with withdrawal, uncomplicated; F10.288 Alcohol dependence with other alcohol-induced disorder; F17.210 Nicotine dependence, cigarettes, uncomplicated; F32.A Depression, unspecified; G40.909 Epilepsy, unspecified, not intractable, without status epilepticus; I10 Essential (primary) hypertension; N28.9 Disorder of kidney and ureter, unspecified; K74.60 Unspecified cirrhosis of liver
CPT/HCPCS: 36415; 80053; 80307; 82140; 85025; 93005; 93010

== ENCOUNTER 2024-02-25 11:10 | Inpatient (IN) | payer OTHER ==
[2024-02-25] MEDS ORDERED: NALOXONE (NARCAN) HCL 4 MG/0.1 ML SPRAY NS PRN (11:31)
[2024-02-25] MEDS ORDERED: NALOXONE HCL 0.4 MG/ML VIAL IVPUSH PRN (11:31)
[2024-02-25] MEDS ORDERED: guaiFENesin 600 MG TABLET.ER (FP) PO PRN (11:31)
[2024-02-25] MEDS ORDERED: BENZONATATE 200 MG CAPSULE PO PRN (11:31)
[2024-02-25] MEDS ORDERED: MAG HYDROX/AL HYDROX/SIMETH 30 ML UNIT-DOSE CUP PO PRN (11:31)
[2024-02-25] MEDS ORDERED: LOPERAMIDE HCL 2 MG CAPSULE PO PRN (11:31)
[2024-02-25] MEDS ORDERED: NICOTINE POLACRILEX 2 MG LOZENGE BC PRN (11:31)
[2024-02-25] MEDS ORDERED: METHOCARBAMOL 500 MG TABLET PO PRN (11:31)
[2024-02-25] MEDS ORDERED: MAGNESIUM HYDROX 2400MG/30ML ORAL SUSPENSION 30 ML CUP PO PRN (11:31)
[2024-02-25] MEDS ORDERED: POLYETHYLENE GLYCOL (HEALTHYLAX) 3350 17 GM PACKET PO PRN (11:31)
[2024-02-25] MEDS: ACAMPROSATE CALCIUM 333 MG TABLET.DR PO SCH (13:58)
[2024-02-25] MEDS: CYPROHEPTADINE HCL 4 MG TABLET PO SCH (16:33)
[2024-02-25] MEDS: THIAMINE 100 MG TABLET PO SCH (21:22)
[2024-02-25] MEDS: levETIRAcetam 500 MG TABLET (FP) PO SCH (21:22)
[2024-02-25] MEDS: MELATONIN 5 MG TABLETS PO SCH (21:22)
[2024-02-26] MEDS: amLODIPine BESYLATE 5 MG TABLET (FP) PO SCH (10:11)
[2024-02-26] MEDS: PRENATAL VITAMINS W/ FOLIC ACID TABLET (FP) PO SCH (10:11)
[2024-02-26] MEDS: NICOTINE 7 MG/24 HOURS TOPICAL PATCH TD SCH (10:12)
[2024-02-26] MEDS: FLU VACCINE (FLULAVAL) PF 45 MCG/0.5 ML SYRINGE 2024-2025 IM ONE (12:50)
[2024-02-26] MEDS: PNEUMOC 20-VAL CONJ-DIP CRM/PF 0.5 ML SYRINGE IM ONE (12:54)
[2024-02-26 13:45] LABS: HIV INTERPRETATION NEGATIVE (NEGATIVE)
[2024-02-27] MEDS: BENZOCAINE/MENTHOL (CHLORASEPTIC ) LOZENGE MM PRN (21:41)
[2024-02-28] MEDS: IBUPROFEN 600 MG TABLET (FP) PO PRN (06:27)
[2024-02-29] MEDS: ACETAMINOPHEN 325 MG TABLET (FP) PO PRN (06:32)
[2024-02-29] MEDS ORDERED: guaiFENesin 600 MG TABLET.ER (FP) PO PRN (13:14)
[2024-02-29] MEDS ORDERED: BENZONATATE 200 MG CAPSULE PO PRN (13:15)
[2024-02-29] MEDS: amLODIPine BESYLATE 2.5 MG TABLET (FP) PO ONE (14:03)
[2024-02-29] MEDS: AZITHROMYCIN 250 MG TABLET PO ONE (14:04)
[2024-03-01] MEDS: amLODIPine BESYLATE 2.5 MG TABLET (FP) PO SCH (10:13)
[2024-03-01] MEDS: AZITHROMYCIN 250 MG TABLET PO SCH (10:14)
[2024-03-01 11:09] LABS: INR 0.87 (0.83-1.09)
[2024-03-02] MEDS: IBUPROFEN 400 MG TABLET (FP) PO PRN (06:18)
[2024-03-02] MEDS: CHLORHEXIDINE GLUCONATE 0.12% 15ML CUP MM SCH (11:16)
[2024-03-04] MEDS: NALTREXONE HCL 50 MG TABLET PO ONE (15:02)
[2024-03-05] MEDS: NALTREXONE HCL 50 MG TABLET PO SCH (10:12)
[2024-03-07] MEDS ORDERED: PNEUMOCOCCAL 23 VACCINE 0.5 ML VIAL IM ONE (10:00)
[2024-03-07] MEDS: amLODIPine BESYLATE 2.5 MG TABLET (FP) PO ONE (15:17)
[2024-03-08] MEDS: amLODIPine BESYLATE 10 MG TABLET (FP) PO SCH (10:03)
[2024-03-08] MEDS ORDERED: PNEUMOCOCCAL 23 VACCINE 0.5 ML VIAL IM ONE (10:20)
[2024-03-08] MEDS: PNEUMOC 20-VAL CONJ-DIP CRM/PF 0.5 ML SYRINGE IM ONE (12:14)
[2024-03-08] MEDS: hydrOXYzine PAMOATE 25 MG CAPSULE (FP) PO PRN (21:20)
[2024-03-09] MEDS: NALTREXONE MICROSPHERES (VIVITROL) 380 MG DISP.SYRIN IM ONE (10:55)
[2024-03-10 06:12] VITALS: BP 114/85; PULSE 86; RESP 18; TEMP 97.8
[2024-03-10] MEDS: NALOXONE (NYS OPIOID OVERDOSE PROGRAM) 4 MG/0.1 ML SPRAY NS SCH (09:00)
== END 2024-03-10 09:15 | disposition home or self-care (01) | DRG 772 ==
LOC: YASAS 11:10 → Y3W 11:12
PROVIDERS: ADMIT Psychiatry & Neurology Pain Medicine; ATTEND Family Medicine Addiction Medicine
PROC: HZ42ZZZ Group Counseling for Substance Abuse Treatment, Cognitive-Behavioral (ICD-10-PCS; principal; 2024-02-25)
DX: F10.20 Alcohol dependence, uncomplicated (principal); F14.20 Cocaine dependence, uncomplicated; F17.210 Nicotine dependence, cigarettes, uncomplicated; F32.A Depression, unspecified; G40.909 Epilepsy, unspecified, not intractable, without status epilepticus; I12.9 Hypertensive chronic kidney disease with stage 1 through stage 4 chronic kidney disease, or unspecified chronic kidney disease; N18.9 Chronic kidney disease, unspecified; K74.60 Unspecified cirrhosis of liver; J06.9 Acute upper respiratory infection, unspecified; Z59.02 Unsheltered homelessness
CPT/HCPCS: 0241U-QW; 36415; 80177; 82140; 82652; 83735; 85610; 86803; 87389; 90656; 90677; G0008; G0009; J2315